=== PATIENT | female | born 1970 | race Caucasian/White ===

== ENCOUNTER → 2022-10-06 13:22 | Outpatient (CLI) | payer MEDICARE, SELFPAY ==
--- NOTE | 2022-10-06 13:24 | XR_ITS ---
FINAL REPORT CLINICAL HISTORY: pain, fall FINDINGS: SINGLE VIEW PELVIS: A single view of the pelvis was obtained. There is no acute fracture or dislocation. There are mild degenerative changes of the hips. Soft tissues are unremarkable. IMPRESSION: Mild degenerative change with no acute bony abnormality. Reviewed, Interpreted and Dictated by Cuauhtemoc Dupree III, MD Transcribed by Brina Oropeza Authenticated and [facility]
== END ==
LOC: RAD 13:22
PROVIDERS: PCP Nurse Practitioner Family; Visit Provider Orthopaedic Surgery
DX: R10.2 Pelvic and perineal pain (principal)
CPT/HCPCS: 72170

== ENCOUNTER → 2022-10-16 11:00 | Outpatient (CLI) | payer MEDICARE, SELFPAY | PROVIDERS: PCP Nurse Practitioner Family; Visit Provider Nurse Practitioner Family | DX: J02.9 Acute pharyngitis, unspecified (principal) | CPT/HCPCS: 87070 ==

== ENCOUNTER → 2023-01-15 16:37 | Outpatient (CLI) | payer MEDICARE, SELFPAY ==
[2023-01-15 16:23] LABS: Basophils # 0.1 K/mm3 (0-0.2); Basophils % 0.5 % (0.1-2.0); Eosinophils # 2.4 K/mm3 (0.0-0.4); Eosinophils % 21.8 % (0.1-12.0); Hematocrit 43.2 % (37.0-47.0); Hemoglobin 14.2 g/dL (12.2-16.2); Lymphocytes # 2.1 K/mm3 (0.7-4.5); Lymphocytes % 18.6 % (10-50); Mean Corpuscular HGB Conc 32.8 g/dL (31.8-35.4); Mean Corpuscular Hemoglobin 29.4 pg (27.0-31.2); Mean Corpuscular Volume 89.5 fl (81-99); Mean Platelet Volume 9.6 fl (7.4-10.4); Monocytes # 0.7 K/mm3 (0.1-1.0); Monocytes % 6.1 % (1.7-9.3); Neutrophils # 5.9 K/mm3 (1.8-7.8); Platelet Count 392 K/mm3 (142-424); Red Blood Count 4.83 M/mm3 (4.20-5.40); Red Cell Distribution Width 14.1 % (11.5-17.5); White Blood Count 11.2 K/mm3 (4.8-10.8)
[2023-01-15 16:27] LABS: Alanine Aminotransferase 26 U/L (12-78); Albumin Level 4.3 g/dl (3.5-5.0); Albumin/Globulin Ratio 1.4 (1.1-1.8); Alkaline Phosphatase 92 U/L (38-126); Anion Gap 16.6 mEq/L (5-15); Aspartate Amino Transferase 31 U/L (14-36); Bilirubin,Total 0.3 mg/dl (0.2-1.3); Blood Urea Nitrogen 23 mg/dl (7-17); Calcium 9.2 mg/dl (8.4-10.2); Carbon Dioxide 25 mmol/L (22.0-30.0); Chloride 103 mmol/L (98-107); Chol/HDL Ratio 5.2 (1-3.5); Cholesterol 235 mg/dl (140-200); Estimated Glomerular Filt Rate 104 ml/min (>60); GFR (African American) 126 ML/MIN (>60); Globulin 3.1 g/dL (1.3-3.2); Glucose 181 mg/dl (74-100); HDL Cholesterol 45 mg/dl (40-60); Potassium 4.6 mmoL/L (3.5-5.1); Sodium 140 mmol/L (136-145); Total Protein,Serum 7.4 g/dl (6.3-8.2); Triglycerides 199 mg/dl (30-150); VLDL Cholesterol 40 mg/dL (0-40)
[2023-01-15 16:38] LABS: Direct LDL Cholesterol 128.32 mg/dL (100-129)
[2023-01-15 16:41] LABS: Hemoglobin A1C 8.1 % (4.0-6.0)
[2023-01-15 16:57] LABS: Thyroid Stimulating Hormone 0.28 uIU/mL (0.465-4.68)
== END ==
PROVIDERS: Visit Provider Nurse Practitioner Family
DX: K52.9 Noninfective gastroenteritis and colitis, unspecified (principal); R00.2 Palpitations; Z79.84 Long term (current) use of oral hypoglycemic drugs; E11.9 Type 2 diabetes mellitus without complications
CPT/HCPCS: 80053; 80061; 83036; 84443; 85025

== ENCOUNTER → 2023-02-23 12:24 | Outpatient (CLI) | payer MEDICARE, SELFPAY | LOC: RT 12:25 | PROVIDERS: PCP Nurse Practitioner Family; Visit Provider Internal Medicine | DX: R00.2 Palpitations (principal) | CPT/HCPCS: 93225 ==

== ENCOUNTER → 2023-03-03 07:47 | Outpatient (CLI) | payer MEDICARE, SELFPAY ==
--- NOTE | 2023-03-03 | CA_ITS ---
APPROVED REPORT Exam: Pharmacologic Technologist: Hortensia Archer Ht: 5 ft 2 in Wt: 129 lbs BSA: 1.59 m2 HR: 69 bpm BP: 128/66 mmHg Rhythm: NSR Indications: Chest pain Medical History Medications: Lisinopril,,,,, Omeprazole,,,,, Pravastatin,,,,, Metformin,,,,, Glimepiride,,,,, LoraTidine,,,,, JaRDiance,,,,, ONdansetron,,,,, TrULicity,,,,, Atenolol-chlorthalidone,,,,, MethIMAZOole,,,,, Stress Test Details Test: LEXISCAN HR Resting HR: 75 bpm Max Heart Rate (APMHR): 165 bpm Max HR Achieved: 100 bpm Target HR (85% APMHR): 140 bpm % of APMHR: 61 Recovery HR: 90 bpm BP Resting BP: 128.0/66.0 mmHg Max BP: 128.0/66.0 mmHg Recovery BP: 114.0/90.0 mmHg ECG Resting ECG: Normal sinus rhythm, NS ST abnormalities inferiorly, Q-waves in inferior leads Stress ECG: No change Arrhythmia: None Recovery ECG: No change Recovery Arrhythmia: None Clinical Exercise duration: 04:00 min Highest Stage Achieved: Stress ECG Conclusion Switched from exercise due to patient concerns about hip issues/pain. Symptoms: Mild shortness of air, stomach and head discomfort. No chest pain. Arrhythmias/Ectopy: None ST-T Changes: No significant ST changes Conclusion: Non-diagnostic Lexiscan stress due to baseline abnormalities. Myoview images reported separately. Test Summary REST . . . . . . . Resting REST 04:00 . . 75 . 128/ 66 . . Stage 1 . . . . . . . Myoview Injected Stage 1 01:00 . . 96 . . . . Stage 2 01:00 . . 99 . 124/ 74 . . Stage 3 01:00 . . 94 . 125/ 74 . . Stage 4 01:00 . . 93 . 122/ 68 . Stop exercise at 04:00 RECOVERY 01:00 . . 91 . . . . RECOVERY 02:00 . . 91 . 128/ 69 . . RECOVERY 03:00 . . 89 . 114/ 72 . . RECOVERY 03:20 . . 90 . 114/ 72 . . Electronically signed by : Arlette Hong, 03/03/2023 20:33:28
--- NOTE | 2023-03-03 07:56 | NM_ITS ---
APPROVED REPORT Exam: Nuclear Stress Test Indication: HTN, DM, HYPERLIPIDEMIA, TOB USE, C.P., SOB, PALPITATIONS, SYNCOPE, FATIGUE Patient Location: Outpatient Stress Tech: Hortensia Archer [place] Tech:Jessica Padilla ELLENLoco RT (R)(N)(M) Ht: 5 ft 2 in Wt: 128 lbs Bra Size: A HR: 75 bpm BP: 128/86 mmHg BSA: 1.58 m2 Rhythm: NSR TID: 1.13 BMI: 23.4 History: HTN, DM, HYPERLIPIDEMIA, TOB USE, C.P., SOB, PALPITATIONS, SYNCOPE, FATIGUE Procedure: Patient received 0.4 mg of intravenous Lexiscan, resting heart rate 75 bpm, resting blood pressure 128/86 mmHg, with Lexiscan maximum heart rate achieved was 99 bpm which is % of the maximum predicted heart rate and blood pressure was 124/74 mmHg. With Lexiscan, patient denied any complaint of chest pain. Cardiac Stress and Resting SPECT Images: Cardiac Stress and Resting SPECT images were obtained using technetium 99m Myoview 31.7 mCi stress and 10.75 mCi at rest. Resting and stress perfusion imaging in both supine and prone positions demonstrate no fixed or reversible perfusion defects. Gated imaging demonstrates normal global and regional LV systolic function. LVEF is calculated at 71%. Conclusion: No fixed or reversible perfusion defects. Gated imaging demonstrates normal global and regional LV systolic function. LVEF is calculated at 71%. Electronically signed by : Arlette Hong, 03/03/2023 20:34:45
--- NOTE | 2023-03-03 09:29 | CA_ITS ---
APPROVED REPORT EXAM: Comprehensive 2D, Doppler, and color-flow Echocardiogram Freight Inspector: KWAKU Cardoso, RVS Ht: 5 ft 2 in Wt: 129lbs BSA: 1.59 HR: 70 bpm BP: 143/72 mmHg Rhythm: NSR Indications: CP, Smoker, Palpitations, SOB, Murmur Echo Enhancing Agent Comments: Poor acoustic windows throughout exam due to lung impedance 2D Dimensions Aortic Root 2.31 cm LA Volume 45.80 mL Left Atrium 2.95 cm LA Volume Index 28.30 mL/m2 (M/F) 16-34 LVOT 1.69 cm (M/F) 1.5-2.5 M-Mode Dimensions RVDd 1.03 cm (0.9-2.6) LA Diam 3.19 cm (1.9-4.0) LVDd 5.05 cm (3.5-5.7) Ao Diam 2.37 cm (2.0-3.7) LVDs 3.30 cm (3.5-5.7) IVSd 0.84 cm (0.6-1.1) PWd 0.90 cm (0.6-1.1) EF (Teich) 63.60% EPSs 0.25 cm FS 34.70% EDV (Teich) 121.00 mL TAPSE 2.08 (<1.7) ESV (Teich) 44.10 mL LV Diastology E Decel Time 277.00 (160-240 msec) E/A Ratio 0.83 MED E' 5.80 (< 7 cm/sec) MED A' 9.70 cm/s E'/MED E' Ratio 17.16 (>14) LAT E' 7.00 (<10 cm/sec) LAT A' 11.30 cm/s E/LAT E' Ratio 14.21 (>14) Aortic Valve LVOT Max 112.00 (70-110 cm/s) LVOT VTI 31.22 cm AoV Peak Yony. 114.00 (50-130 cm/s) AO Peak GR. 5.20 mmHg AO Mean GR. 3.60 (<5 mmHg) AO VTI 28.57 (18-25 cm) YASMIN (VTI) 2.45 (2.5-4.5 cm2) Mitral Valve MV A Velocity 120.00 (40-130 cm/s) E/A Ratio 0.83 MV Decel. Time 277.00 (160-240 ms) MV Mean Gr. 2.40 (<2mmHg) MV PHT 63.00 ms Pulmonary Valve PV Peak Velocity 98.00 (50-150 cm/s) Tricuspid Valve TR P. Velocity 225.00 cm/s RAP Estimate 10.00 mmHg RVSP 30.20 mmHg Left Ventricle The left ventricle is normal size. The left ventricular systolic function is normal. The left ventricular ejection fraction is within the normal range. There is increased LV wall thickness. There is normal LV segmental wall motion. The left ventricular diastolic function is normal. LVEF is 65%. Right Ventricle The RV is not very well visualized due to poor accoustic windows. Grossly, the RV appears normal in size. The right ventricular systolic function is normal. Atria The left atrium size is normal. The right atrium size is normal. Aortic Valve The aortic valve is trileaflet. The aortic valve opens well. There is no aortic valvular stenosis. No aortic regurgitation is present. Mitral Valve There is moderate mitral annular calcification. The mitral valve leaflets are mildly thickened. The motion of the MV leaflets is mildly restricted due to mitral annular calcification. No evidence of mitral valve stenosis. Trace mitral regurgitation. Tricuspid Valve The tricuspid valve leaflets are thin and pliable. Trace tricuspid regurgitation. RVSP = 20 mmHg + RA pressure. Pulmonic Valve The pulmonary valve is normal in structure. Trace pulmonic regurgitation. Great Vessels The aortic root is normal in size. The ascending aorta is normal in size. IVC is normal in size and collapses >50% with inspiration. Pericardium There is no pericardial effusion. Other Information Study Quality: Adequate Conclusion Normal biventricular systolic function. RV size not well visualized, may be underestimated. Moderate mitral annular calcification (MAC). Restricted motion of the MV leaflets. No significant valvular stenosis or regurgitation. Electronically signed by : Arlette Hong, 03/03/2023 18:50:41
--- NOTE | 2023-03-03 09:29 | US_ITS ---
FINAL REPORT CLINICAL HISTORY: cp/abnl ecg/palps, current smoker, HTN, DM, hyperlipidemia, bilateral claudication, bilateral rest pain. FINDINGS: COMPLETE ANKLE/BRACHIAL INDICES BILATERAL Complete ankle brachial indices were obtained. The right FIDELIA is 1.0. The left FIDELIA is 1.1. IMPRESSION: ABIs are within normal limits bilaterally. Reviewed, Interpreted and Dictated by Cuauhtemoc Dupree III, MD Transcribed by Merle Anna Authenticated and [facility]
--- NOTE | 2023-03-03 09:29 | CA_ITS ---
FINAL REPORT TECHNIQUE: Color Doppler, duplex Doppler and goodrich scale sonography of the bilateral neck vasculature was performed. Velocities were measured in the carotid arteries. Stenosis evaluation based on velocity criteria. CLINICAL HISTORY: cp/abnl ecg/palps COMPARISON: None FINDINGS: The peak systolic velocity of the right common carotid artery is 99 cm/sec and internal carotid artery 142 cm/sec. The diastolic velocity in the internal carotid artery is 45 cm/sec. The ICA/CCA ratio is 1.4. Visually, mild to moderate amount of plaque is seen. These findings are consistent with less than 50% stenosis. The external carotid artery is patent. The right vertebral artery is patent with antegrade flow. The peak systolic velocity of the left common carotid artery is 112 cm/sec and internal carotid artery 108 cm/sec. The diastolic velocity in the internal carotid artery is 41 cm/sec. The ICA/CCA ratio is 1.0. Visually, a mild to moderate amount of plaque is seen. These findings are consistent with less than 50% stenosis. The external carotid artery is patent. The left vertebral artery is patent with antegrade flow. IMPRESSION: No evidence of significant carotid stenosis. Bilateral patent vertebral arteries. If indicated, CTA or MRA could further evaluate. Reviewed, Interpreted and Dictated by Cuauhtemoc Dupree III, MD Transcribed by Gabbi Lemon Authenticated and [facility]
== END ==
PROVIDERS: PCP Nurse Practitioner Family; Visit Provider Nurse Practitioner
DX: E05.90 Thyrotoxicosis, unspecified without thyrotoxic crisis or storm (principal); E78.5 Hyperlipidemia, unspecified; R06.00 Dyspnea, unspecified; R07.9 Chest pain, unspecified; R42 Dizziness and giddiness; R94.31 Abnormal electrocardiogram [ECG] [EKG]; I70.213 Atherosclerosis of native arteries of extremities with intermittent claudication, bilateral legs
CPT/HCPCS: 78452; 93017; 93306; 93880; 93923; A9502; J2785

== ENCOUNTER 2023-11-04 16:48 | Outpatient (CLI) | payer MEDICARE, SELFPAY ==
[2023-11-04 16:26] LABS: Basophils # 0.1 K/mm3 (0-0.2); Basophils % 1.1 % (0.1-2.0); Eosinophils # 0.4 K/mm3 (0.0-0.4); Eosinophils % 3.4 % (0.1-12.0); Hematocrit 43.7 % (37.0-47.0); Hemoglobin 13.9 g/dL (12.2-16.2); Lymphocytes # 2.4 K/mm3 (0.7-4.5); Lymphocytes % 22.4 % (10-50); Mean Corpuscular HGB Conc 31.9 g/dL (31.8-35.4); Mean Corpuscular Hemoglobin 29.9 pg (27.0-31.2); Mean Corpuscular Volume 93.9 fl (81-99); Mean Platelet Volume 10.6 fl (7.4-10.4); Monocytes # 0.6 K/mm3 (0.1-1.0); Neutrophils # 7.2 K/mm3 (1.8-7.8); Neutrophils % 67.2 % (37.0-80.0); Platelet Count 387 K/mm3 (142-424); Red Blood Count 4.65 M/mm3 (4.20-5.40); Red Cell Distribution Width 13.6 % (11.5-17.5); White Blood Count 10.7 K/mm3 (4.8-10.8)
[2023-11-04 16:29] LABS: Chloride 104 mmol/L (98-107)
[2023-11-04 16:30] LABS: Potassium 4.3 mmoL/L (3.5-5.1); Sodium 136 mmol/L (136-145)
[2023-11-04 16:32] LABS: Alanine Aminotransferase 24 U/L (12-78); Albumin Level 4.1 g/dl (3.5-5.0); Albumin/Globulin Ratio 1.3 (1.1-1.8); Alkaline Phosphatase 108 U/L (38-126); Anion Gap 11.3 mEq/L (5-15); Aspartate Amino Transferase 30 U/L (14-36); Bilirubin,Total 0.3 mg/dl (0.2-1.3); Blood Urea Nitrogen 32 mg/dl (7-17); Carbon Dioxide 25 mmol/L (22.0-30.0); Estimated Glomerular Filt Rate 87 ml/min (>60); GFR (African American) 105 ML/MIN (>60); Globulin 3.2 g/dL (1.3-3.2); Total Protein,Serum 7.3 g/dl (6.3-8.2)
[2023-11-04 16:33] LABS: Chol/HDL Ratio 6.6 (1-3.5); Cholesterol 283 mg/dl (140-200); Glucose 253 mg/dl (74-100); HDL Cholesterol 43 mg/dl (40-60); Triglycerides 364 mg/dl (30-150); VLDL Cholesterol 73 mg/dL (0-40)
[2023-11-04 16:49] LABS: T4 (Thyroxine) 8.9 ug/dl (5.53-11.0)
[2023-11-04 17:02] LABS: Thyroid Stimulating Hormone 0.14 uIU/mL (0.465-4.68)
[2023-11-04 17:10] LABS: Hemoglobin A1C 12.7 % (4.0-6.0)
== END 2023-11-04 23:59 ==
LOC: LAB.DROPOF 16:49
PROVIDERS: PCP Family Medicine; Visit Provider Family Medicine
DX: E11.9 Type 2 diabetes mellitus without complications (principal); E05.90 Thyrotoxicosis, unspecified without thyrotoxic crisis or storm; E78.5 Hyperlipidemia, unspecified; Z79.84 Long term (current) use of oral hypoglycemic drugs; Z79.85 Long-term (current) use of injectable non-insulin antidiabetic drugs
CPT/HCPCS: 80053; 80061; 83036; 84436; 84443; 85025

== ENCOUNTER 2024-03-21 10:54 | Outpatient (CLI) | payer MEDICARE, SELFPAY ==
[2024-03-21 16:50] LABS: Basophils # 0.1 K/mm3 (0-0.2); Basophils % 0.9 % (0.1-2.0); Eosinophils # 0.3 K/mm3 (0.0-0.4); Eosinophils % 2.7 % (0.1-12.0); Hematocrit 43.9 % (37.0-47.0); Lymphocytes # 2.1 K/mm3 (0.7-4.5); Lymphocytes % 19.2 % (10-50); Mean Corpuscular HGB Conc 31.9 g/dL (31.8-35.4); Mean Corpuscular Hemoglobin 29.2 pg (27.0-31.2); Mean Corpuscular Volume 91.7 fl (81-99); Mean Platelet Volume 9.7 fl (7.4-10.4); Monocytes # 0.7 K/mm3 (0.1-1.0); Monocytes % 6.6 % (1.7-9.3); Neutrophils # 7.7 K/mm3 (1.8-7.8); Neutrophils % 70.6 % (37.0-80.0); Platelet Count 348 K/mm3 (142-424); Red Blood Count 4.79 M/mm3 (4.20-5.40); Red Cell Distribution Width 15.4 % (11.5-17.5); White Blood Count 10.9 K/mm3 (4.8-10.8)
[2024-03-21 17:14] LABS: Microalbumin/Creatinine Ratio 20.9
[2024-03-21 17:16] LABS: Alanine Aminotransferase 24 U/L (12-78); Albumin Level 4.3 g/dl (3.5-5.0); Albumin/Globulin Ratio 1.2 (1.1-1.8); Alkaline Phosphatase 85 U/L (38-126); Anion Gap 13.6 mEq/L (5-15); Aspartate Amino Transferase 34 U/L (14-36); Bilirubin,Total 0.6 mg/dl (0.2-1.3); Blood Urea Nitrogen 17 mg/dl (7-17); Calcium 9.4 mg/dl (8.4-10.2); Carbon Dioxide 25 mmol/L (22.0-30.0); Chloride 104 mmol/L (98-107); Chol/HDL Ratio 5.9 (1-3.5); Cholesterol 277 mg/dl (140-200); Estimated Glomerular Filt Rate 103 ml/min (>60); GFR (African American) 125 ML/MIN (>60); Globulin 3.6 g/dL (1.3-3.2); Glucose 224 mg/dl (74-100); HDL Cholesterol 47 mg/dl (40-60); Potassium 4.6 mmoL/L (3.5-5.1); Sodium 138 mmol/L (136-145); Total Protein,Serum 7.9 g/dl (6.3-8.2); Triglycerides 344 mg/dl (30-150); VLDL Cholesterol 69 mg/dL (0-40)
[2024-03-21 17:21] LABS: Creatinine,Urine Random 33 mg/dL (Not Estab.)
[2024-03-21 17:27] LABS: Direct LDL Cholesterol 152.31 mg/dL (100-129)
[2024-03-21 17:32] LABS: T4 (Thyroxine) 9.3 ug/dl (5.53-11.0)
[2024-03-21 17:46] LABS: Thyroid Stimulating Hormone 0.21 uIU/mL (0.465-4.68)
[2024-03-21 19:41] LABS: Hemoglobin A1C 9.4 % (4.0-6.0)
== END 2024-03-21 23:59 | disposition home or self-care (01) ==
LOC: LAB.DROPOF 03-22 10:54
PROVIDERS: PCP Family Medicine; Visit Provider Family Medicine
DX: E05.90 Thyrotoxicosis, unspecified without thyrotoxic crisis or storm (principal); E78.5 Hyperlipidemia, unspecified; R30.0 Dysuria; E11.9 Type 2 diabetes mellitus without complications; Z79.84 Long term (current) use of oral hypoglycemic drugs; Z79.85 Long-term (current) use of injectable non-insulin antidiabetic drugs
CPT/HCPCS: 80050; 80053; 80061; 82043; 82570; 83036; 84436; 84443; 85025; 87086

== ENCOUNTER 2024-05-04 09:58 | Outpatient (CLI) | payer MEDICARE, SELFPAY ==
--- NOTE | 2024-05-04 09:59 | CT_ITS ---
FINAL REPORT TECHNIQUE: Thin section axial images were obtained from the lung apices to the upper abdomen by computed tomography. Reformatted images were obtained and reviewed. This study was performed with techniques to keep radiation doses al low as reasonably achievable (ALARA). Individualized dose reduction techniques using automated exposure control or adjustment of mA and/or kV according to the patient's size were employed. CLINICAL HISTORY: lung cancer screening smoker 1 ppd x 30 years COMPARISON: None FINDINGS: CHEST CT LOW DOSE 54-year-old female, current smoker, [id number] history. CTDI vol (mGy): 2.9 DLP (mGy-cm): 103.68 There is no axillary adenopathy. There is no mediastinal or hilar mass or adenopathy. The heart is normal in size. There is no pericardial or pleural effusion. Lung window images demonstrate 2 noncalcified nodules in the right lower lobe. The more superior nodule measures 7 mm in size, best seen on image #40 of series 4. There is a round focus somewhat more inferior, also measuring 7 mm in size, best seen on image #48 of series 4.. Limited images of the upper abdomen are unremarkable. IMPRESSION: Lung-RADS category 3. Recommend 6 month follow up low dose chest CT. Reviewed, Interpreted and Dictated by Jagjit Lindsey MD Transcribed by Gabbi Lemon Authenticated and [facility]
== END 2024-05-04 23:59 | disposition home or self-care (01) ==
PROVIDERS: PCP Family Medicine; Visit Provider Family Medicine
DX: F17.210 Nicotine dependence, cigarettes, uncomplicated (principal)
CPT/HCPCS: 71271

== ENCOUNTER 2024-05-11 07:57 | Outpatient (CLI) | payer MEDICARE, SELFPAY ==
--- NOTE | 2024-05-11 07:57 | MM_ITS ---
PROCEDURE INFORMATION: Exam: MG Bilateral Screening 3D Mammography Exam date and time: 05/11/2024 7:54 AM Age: 54 years old Clinical indication: Screening mammogram TECHNIQUE: Imaging protocol: Bilateral Screening tomosynthesis and 2D mammography including computer-aided detection (CAD) when performed. COMPARISON: 1. MG DMSB DIG MAMM-SCREEN CHENG 08/18/2013 10:37 AM 2. MG DIAG MAMMO BI-LAT W/ CAD 03/06/2009 11:31 AM 3. BL US BREAST-LT 09/21/2013 3:05 PM FINDINGS: MAMMOGRAPHY: Breast composition: There are scattered areas of fibroglandular density. Mass: None. Architectural distortion: No new or suspicious architectural distortion. Calcifications: No new or suspicious calcifications are present Asymmetric density: No new or suspicious asymmetric density is present Skin thickening: None. Axillary adenopathy: None. IMPRESSION: No mammographic evidence of malignancy. Recommend annual screening mammography unless otherwise clinically indicated. ASSESSMENT: BI-RADS category 1: Negative.
--- NOTE | 2024-05-11 07:57 | XR_ITS ---
FINAL REPORT TECHNIQUE: Bone mineral density was calculated of the lumbar spine and hip. CLINICAL HISTORY: postmenopausal COMPARISON: None FINDINGS: Using L1-4, the bone mineral density of the spine is 1.066 g/cm2, corresponding to T-score of 0.2. Using the left hip, the bone mineral density of the femoral neck is 0.862 g/cm2, corresponding to a T-score of 0.1. NOTE: T-score: Standard deviation compared with peak bone mass of young adult mean. *Following the recommendations of the International Society of Bone densitometry, classification of hip BMD is based on the lower of two T-scores; total hip or femoral neck. IMPRESSION: Normal bone mineral density of the lumbar spine and left hip. Reviewed, Interpreted and Dictated by Cuauhtemoc Dupree III, MD Transcribed by Gabbi Lemon Authenticated and . [facility]
== END 2024-05-11 23:59 | disposition home or self-care (01) ==
LOC: RAD 07:57
PROVIDERS: PCP Family Medicine; Visit Provider Family Medicine
DX: Z78.0 Asymptomatic menopausal state (principal); Z12.31 Encounter for screening mammogram for malignant neoplasm of breast
CPT/HCPCS: 77063; 77067; 77080

== ENCOUNTER 2024-06-09 11:19 | Outpatient (CLI) | payer MEDICARE, SELFPAY ==
--- NOTE | 2024-06-09 11:20 | US_ITS ---
FINAL REPORT CLINICAL HISTORY: 6 MONTH F/U COMPARISON: No priors available for comparison. FINDINGS: Sonographic images of the thyroid gland were obtained. The right thyroid lobe measures 44 mm. in length. The left thyroid lobe measures 53 mm. in length. The thyroid isthmus measures 2 mm. The echogenicity is normal. Bilateral thyroid nodules are identified, largest on the right is mostly solid and isoechoic measuring 16 x 10 x 13 mm consistent with TR 3. Largest nodule on the left is solid and isoechoic with macrocalcification measuring 31 x 25 x 21 mm consistent with TR 4. IMPRESSION: Bilateral thyroid nodules. Recommend ultrasound-guided biopsy of the dominant nodule on the left if not already performed. Authenticated and [facility]
== END 2024-06-09 23:59 | disposition home or self-care (01) ==
LOC: RAD 11:20
PROVIDERS: PCP Family Medicine; Visit Provider Family Medicine
DX: Z86.39 Personal history of other endocrine, nutritional and metabolic disease (principal)
CPT/HCPCS: 76536

== ENCOUNTER 2024-06-13 08:53 | Outpatient (CLI) | payer MEDICARE, MEDICAID, SELFPAY ==
--- NOTE | 2024-06-13 08:58 | US_ITS ---
FINAL REPORT CLINICAL HISTORY: thyroid nodule -- LEFT THYROID FNA -- AMADOR ROUSSEAU FINDINGS: ULTRASOUND GUIDED THYROID BIOPSY HISTORY: Left thyroid nodule/mass. TECHNIQUE: Limited sonographic evaluation of thyroid gland was performed to localize lesion of interest. The neck was prepped in a routine sterile fashion and locally anesthetized with 1% lidocaine. FNA was performed with 25-gauge needle under direct sonographic visualization. 6 passes were made. Cytology is pending. Procedure was well tolerated. CONCLUSION: 1. Technically successful left thyroid fine needle aspiration. Reviewed, Interpreted and Dictated by Cuauhtemoc Dupree III, MD Transcribed by Isabell Cazares PA-C Authenticated and [facility]
== END 2024-06-13 23:59 | disposition home or self-care (01) ==
LOC: RAD 08:54
PROVIDERS: PCP Family Medicine; Visit Provider Family Medicine
DX: E04.1 Nontoxic single thyroid nodule (principal); E05.90 Thyrotoxicosis, unspecified without thyrotoxic crisis or storm
CPT/HCPCS: 76536; 76942; 88173

== ENCOUNTER 2024-12-04 13:54 | Emergency (ER) | payer MEDICARE, MEDICAID, SELFPAY ==
[2024-12-04] VITALS (7 sets, daily range): BP systolic 102–150; BP diastolic 64–79; PULSE 62–82; RESP 15–20; TEMP 36.7–37; O2SAT 98–99; BMI 25.6
--- NOTE | 2024-12-04 14:11 | XR_ITS ---
PROCEDURE INFORMATION: Exam: XR Left Elbow Exam date and time: 12/04/2024 2:19 PM Age: 54 years old Clinical indication: Injury or trauma; Fall; Other: Pain; Additional info: Lateral pain after fall TECHNIQUE: Imaging protocol: Radiologic exam of the left elbow. Views: 3 or more views. COMPARISON: CR XR ELBOW LT MIN 3V 12/04/2024 2:19 PM FINDINGS: Bones/joints: There is a lucency in the radial head seen better on the forearm films. It extends into the articular surface and is consistent with nondisplaced radial head fracture.. Soft tissues: Soft tissue swelling of the elbow IMPRESSION: There is a lucency in the radial head seen better on the forearm films. It extends into the articular surface and is consistent with nondisplaced radial head fracture..
--- NOTE | 2024-12-04 14:11 | XR_ITS ---
PROCEDURE INFORMATION: Exam: XR Left Shoulder Exam date and time: 12/04/2024 2:19 PM Age: 54 years old Clinical indication: Injury or trauma; Fall; Other: Pain; Additional info: Anterior/ clavicle pain after fall TECHNIQUE: Imaging protocol: Radiologic exam of the left shoulder. Views: 2 or more views. COMPARISON: CT LUNG SCREENING 05/04/2024 10:12 AM FINDINGS: Bones/joints: Mild Degenerative changes in the acromioclavicular joint and glenohumeral joint. There is no evidence of acute fracture.There is no evidence of malalignment or dislocation. Soft tissues: Normal. IMPRESSION: There is no evidence of acute fracture.There is no evidence of malalignment or dislocation.
--- NOTE | 2024-12-04 14:11 | XR_ITS ---
PROCEDURE INFORMATION: Exam: XR Left Wrist Exam date and time: 12/04/2024 2:19 PM Age: 54 years old Clinical indication: Injury or trauma; Fall; Other: Pain TECHNIQUE: Imaging protocol: Radiologic exam of the left wrist. Views: 3 or more views. COMPARISON: CR XR FOREARM LT 2V 12/04/2024 2:19 PM FINDINGS: Bones/joints: There is no evidence of acute fracture.There is no evidence of malalignment or dislocation. Mild degenerative changes in the radiocarpal joint Soft tissues: Normal. IMPRESSION: There is no evidence of acute fracture.There is no evidence of malalignment or dislocation.
--- NOTE | 2024-12-04 14:11 | XR_ITS ---
PROCEDURE INFORMATION: Exam: XR Left Forearm Exam date and time: 12/04/2024 2:19 PM Age: 54 years old Clinical indication: Injury or trauma; Fall; Other: Pain; Additional info: Abrasion, pain after fall TECHNIQUE: Imaging protocol: Radiologic exam of the left forearm. Views: 2 views. COMPARISON: CR XR HAND LT MIN 3V 12/04/2024 2:19 PM FINDINGS: Bones/joints: Lucency in the articular surface of the radial head consistent with nondisplaced radial head fracture.. No fracture of the radial or ulnar shaft Soft tissues: Soft tissue swelling of the elbow IMPRESSION: Lucency in the articular surface of the radial head consistent with nondisplaced radial head fracture..
--- NOTE | 2024-12-04 14:11 | XR_ITS ---
PROCEDURE INFORMATION: Exam: XR Right Knee Exam date and time: 12/04/2024 2:19 PM Age: 54 years old Clinical indication: Injury or trauma; Fall; Other: Pain; Additional info: Anterior abrasion TECHNIQUE: Imaging protocol: Radiologic exam of the right knee. Views: 3 views. COMPARISON: US ARTERIAL LOWER EXT REST 03/03/2023 10:51 AM FINDINGS: Bones/joints: There is no evidence of acute fracture.There is no evidence of malalignment or dislocation. Soft tissues: Normal. IMPRESSION: There is no evidence of acute fracture.There is no evidence of malalignment or dislocation.
--- NOTE | 2024-12-04 14:11 | XR_ITS ---
PROCEDURE INFORMATION: Exam: XR Left Hand Exam date and time: 12/04/2024 2:19 PM Age: 54 years old Clinical indication: Injury or trauma; Fall; Other: Pain; Additional info: Lateral pain after fall TECHNIQUE: Imaging protocol: Radiologic exam of the left hand. Views: 3 or more views. COMPARISON: CR XR HAND LT MIN 3V 12/04/2024 2:19 PM FINDINGS: Bones/joints: There is no evidence of acute fracture.There is no evidence of malalignment or dislocation. Degenerative changes in the radiocarpal joint Soft tissues: Normal. IMPRESSION: There is no evidence of acute fracture.There is no evidence of malalignment or dislocation.
--- NOTE | 2024-12-04 14:13 | ED_ITS ---
<Statement entered by Andrey Kasper DO - 12/06/24 14:38> I was consulted by the JENNIFER, and we discussed the complexity of the problem being addressed. I approve the treatment and management plan for this patient's care in the emergency department, thus performing a substantive portion of the medical decision making. Seen by JENNIFER only. Andrey Kasper DO Discharge Plan Disposition Patient Disposition: Home, Self-Care Condition: Good Prescriptions Prescriptions: New hydrocodone-acetaminophen 5-325 mg tablet 1 tab PO Q6H PRN (Reason: pain) 3 Days Qty: 12 0RF No Action hydroxyzine HCl 50 mg tablet 50 mg PO TID PRN (Reason: anxiety) Qty: 90 1RF ondansetron 4 mg tablet,disintegrating 4 mg PO Q8H PRN (Reason: nausea and vomiting) Qty: 30 1RF metformin 500 mg tablet extended release 24 hr 500 mg PO DAILY Qty: 30 2RF meloxicam 15 mg tablet 15 mg PO DAILY Qty: 30 2RF tizanidine [Zanaflex] 4 mg tablet 4 mg PO BID PRN (Reason: muscle spasticity) Qty: 30 2RF omeprazole 20 mg capsule,delayed release(DR/EC) 20 mg PO DAILY Qty: 90 1RF atenolol-chlorthalidone 50-25 mg tablet 0.5 tab PO DAILY 30 Days Qty: 15 2RF methimazole 10 mg tablet 10 mg PO DAILY Qty: 30 2RF (DME) blood-glucose meter [True Metrix Air Glucose Meter] Kit See Rx Instructions .Route Qty: 1 0RF Rx Instructions: As directed (DME) True Metrix Glucose Test Strip Strip See Rx Instructions .Route Qty: 100 1RF Rx Instructions: As directed (DME) lancets [TRUEplus Lancets] 33 gauge misc See Rx Instructions .Route Qty: 100 1RF Rx Instructions: As directed alcohol swabs Pads, Medicated 1 pad topical .COMPLEX 30 Days Qty: 100 3RF Rx Instructions: 1 pad topically to check blood sugar (DME) True Metrix Level 1 Solution See Rx Instructions .Route Qty: 1 0RF Rx Instructions: As directed docusate sodium [Colace] 100 mg capsule 100 mg PO BID Qty: 60 5RF pravastatin 40 mg tablet 40 mg PO DAILY 90 Days Qty: 90 1RF trazodone 50 mg tablet 50 mg PO HS Qty: 30 3RF insulin glargine [Lantus Solostar U-100 Insulin] 100 unit/mL (3 mL) insulin pen 30 unit SQ DAILY Qty: 3 2RF (DME) FreeStyle Flavia 2 Sensor Kit See Rx Instructions .ROUTE .COMPLEX Qty: 2 2RF Dose Instruction: USE DIRECTED TO MEASURE BLOOD SUGAR. APPLY NEW SENSOR EVERY 14 DAYS. Rx Instructions: USE DIRECTED TO MEASURE BLOOD SUGAR. APPLY NEW SENSOR EVERY 14 DAYS. (DME) Dexcom G6 Extension Associate Misc See Rx Instructions .Route Qty: 1 0RF Rx Instructions: As directed (DME) Dexcom G6 Sensor Device See Rx Instructions .Route Qty: 3 6RF Rx Instructions: As directed lisinopril 10 mg tablet See Rx Instructions .ROUTE .COMPLEX Qty: 90 0RF Dose Instruction: TAKE 1 TABLET 1 TIME EACH DAY Rx Instructions: TAKE 1 TABLET 1 TIME EACH DAY (DME) pen needle, diabetic [Comfort EZ Pen [place]] 32 gauge x 3/16 needle See Rx Instructions .ROUTE .COMPLEX Qty: 100 3RF Dose Instruction: USE TO INJECT INSULIN 1 TIME EACH DAY Rx Instructions: USE TO INJECT INSULIN 1 TIME EACH DAY (DME) Dexcom G6 Transmitter Device See Rx Instructions .Route Qty: 1 1RF Rx Instructions: As directed Referrals Follow up/Referrals: Sha Barriga DO [Staff Physician] - See instructions Jai Kenyon MD [Primary Care Provider] - See instructions Activity Restrictions/Add. Instructions Additional Instructions/Restrictions: You were seen for a radial head fracture. You need to follow up with the orthopedist. Return to the ER if you have severe swelling, pain, unable to move your hand. Clinical Impressions Clinical Impression: Closed fracture of radial head Instructions Patient Instructions: DI for Forearm Fracture Print Language Print Language: Persian Discharge ED Provider: Andrey Kasper General Adult HPI General Chief complaint: Extremity Injury, Upper Stated complaint: [id number], pain/swelling in L arm, cant move Time Seen by Provider: 12/04/24 13:59 Mode of Arrival: Ambulatory Source of Information: Patient Description of Symptoms (Recalled from ER Triage Doc. by RN): pt was walking and tripped over her blower outside and landed on all fours but majority of force caught on left arm, where majority of her pain is at. PMS intact History of Present Illness HPI narrative: Patient presents after a fall. She reports that she was doing some yard work and tripped over a leaf blower. She reports that she fell onto her bilateral knees and arms. Denies any known head injury or headache. She has abrasions to her right knee and left upper extremity. She has decreased range of motion to her left upper extremity as well. She has not taken any Tylenol or ibuprofen. She has applied a wrap to her left wrist. Denies any fevers or vomiting MD complaint: left arm pain Onset (ago): hour(s) Location: left and upper extremity Radiation: non-radiation Severity: moderate Consistency: constant Relieving factors: none Exacerbating factors: movement Associated symptoms: negative fever/chills Related Data Previous Rx's ?Medication ?Instructions ?Recorded blood sugar diagnostic (True #100 ea 10/01/22 Metrix Glucose Test Strip) blood-glucose meter (True Metrix #1 ea 10/01/22 Air Glucose Meter kit) lancets 33 gauge (TRUEplus Lancets) #100 ea 10/01/22 alcohol swabs 1 pad topical .COMPLEX diabtes 30 10/03/22 days #100 ea blood glucose control, low (True #1 ea 10/03/22 Metrix Level 1 solution) omeprazole 20 mg capsule,delayed 20 mg PO DAILY #90 caps 01/15/23 release hydroxyzine HCl 50 mg tablet 50 mg PO TID PRN anxiety #90 tabs 03/13/23 ondansetron 4 mg disintegrating 4 mg PO Q8H PRN nausea and 03/13/23 tablet vomiting #30 tabs docusate sodium 100 mg capsule 100 mg PO BID #60 caps 11/05/23 (Colace) pravastatin 40 mg tablet 40 mg PO DAILY Cholesterol 90 days 03/02/24 #90 tabs trazodone 50 mg tablet 50 mg PO HS sleep #30 tabs 07/06/24 insulin glargine 100 unit/mL (3 30 unit (0.3 mL) SQ DAILY #3 mL 08/15/24 mL) subcutaneous pen (Lantus Solostar U-100 Insulin) flash glucose sensor (FreeStyle #2 kits 09/12/24 Flavia 2 Sensor kit) blood-glucose sensor (Dexcom G6 #3 ea 09/13/24 Sensor device) blood-glucose,platform loader,cont #1 ea 09/13/24 (Dexcom G6 Extension Associate) lisinopril 10 mg tablet See Rx Instructions .Route 10/17/24 .COMPLEX #90 tabs pen needle, diabetic 32 gauge x #100 ea 10/17/2410/16 (Comfort EZ Pen [place]) atenolol 50 mg-chlorthalidone 25 0.5 tab PO DAILY 30 days #15 tabs 11/09/24 mg tablet methimazole 10 mg tablet 10 mg PO DAILY #30 tabs 11/09/24 meloxicam 15 mg tablet 15 mg PO DAILY #30 tabs 11/30/24 metformin 500 mg tablet,extended 500 mg PO DAILY Diabetes #30 tabs 11/30/24 release 24 hr tizanidine 4 mg tablet (Zanaflex) 4 mg PO BID PRN muscle spasticity 11/30/24 #30 tabs blood-glucose transmitter (Dexcom #1 ea 12/02/24 G6 Transmitter device) hydrocodone 5 mg-acetaminophen 325 1 tab PO Q6H PRN pain 3 days #12 12/04/24 mg tablet tabs Allergies Allergy/AdvReac Type Severity Reaction Status Date / Time acetaminophen (From Percocet) AdvReac Vomiting Verified 11/30/24 09:25 hydromorphone (From Dilaudid) AdvReac Vomiting Verified 11/30/24 09:25 oxycodone (From Percocet) AdvReac Vomiting Verified 11/30/24 09:25 PFSH PFSH Disclaimer: The information contained in this section may have been updated after the patient was seen, as this information can be updated by other users. Medical History (Updated 12/04/24 @ 16:48 by SOHAM Pak) Peripheral vascular disease, unspecified Insomnia, unspecified Claudication Dizziness Abnormal electrocardiogram [ECG] [EKG] Dyspnea Chest pain Hypertension Hyperthyroidism Crohn's colitis Manic depression Carpal tunnel syndrome PTSD (post-traumatic stress disorder) Bipolar 1 disorder Hyperglycemia due to type 1 diabetes mellitus Surgical History History of colonoscopy H/O breast biopsy History of hysterectomy History of Family History Father Cancer Mother Hypertension Thyroid disorder Social History Smoking Status: Current every day smoker tobacco type: cigarettes packs per day: 1 alcohol intake: never substance use type: marijuana current occupational status: disabled Travel in the last 8 weeks?: None household members: none housing: house Have you lived/traveled outside [place] in past 30 days?: No Contact w/someone who lives/traveled outside [place] past 30 days?: No Exposure to someone with infectious disease in past 14 days?: No Do you have a fever (greater than 100.4 F or 38 C)?: No Have you tested positive for COVID-19?: No Exposed to someone with COVID-19 in past 14 days?: No Do you have a sore throat?: No Do you have a cough?: No Do you have any weakness?: No Do you have any diarrhea?: No Are you experiencing any unusual bleeding?: No Do you have any muscle aches/pain?: No Do you have any abdominal pain?: No Are you experiencing loss of taste or smell?: No Other Medical History Have you received the Flu Vaccine for this season: No Have you received the Pneumonia Vaccine: No ROS Obtained: Yes Systems reviewed as appropriate & no additional complaints except as documented Physical Exam General General appearance: alert and in no apparent distress Head Head exam: atraumatic and normocephalic Eye Eye exam: Present normal appearance and EOMI Chest Chest inspection: Present symmetric chest wall rise Respiratory Respiratory exam: Present normal lung sounds bilaterally; Absent wheezes or stridor Cardiovascular Cardiovascular exam: Present regular rate and normal rhythm; Absent systolic murmur Extremities Exam Extremities exam: Present other (Right knee anterior, inferior tenderness with abrasion. Left anterior shoulder mild tenderness, left lateral elbow TTP, abrasion to lateral/ posterior mid forearm, unable to extend left elbow, can flex to 70 degrees. No scaphoid tenderness, Positive thenar eminence tenderness/swelling. N/V intact. ) Neurological Exam Neurological exam: Present alert and oriented X3 Psychiatric Psychiatric exam: Present normal affect and normal mood Skin Skin exam: Present warm, dry and intact Medical Decision Making Medical Records Screening: Per USPSTF and CDC recommendations, given the prevalence of disease in our region, it is our hospital?s policy to screen for HIV and viral Hepatitis for all patients aged 18 and over and those with ongoing risk factors. John Inquiry Pt receiving controlled substance: Yes John was queried for this patient: Yes Risks and benefits of using a controlled substance: were discussed with pt by me Vital Signs: 12/04/24 14:01 12/04/24 14:05 12/04/24 15:00 Temperature 98.6 F Temperature Source Oral Pulse Rate 69 63 Pulse Rate [Left Radial] 82 Respiratory Rate 20 Blood Pressure 102/74 L 132/72 Blood Pressure [Right Arm] 102/74 L Blood Pressure Mean Blood Pressure Mean [Right Arm] 83 02 Sat by Pulse Oximetry 99 98 99 Oxygen Delivery Method Room Air Room Air Room Air 12/04/24 15:30 12/04/24 16:01 12/04/24 16:30 Temperature Temperature Source Pulse Rate 71 67 62 Pulse Rate [Left Radial] Respiratory Rate 15 Blood Pressure 130/64 126/65 119/67 Blood Pressure [Right Arm] Blood Pressure Mean 80 Blood Pressure Mean [Right Arm] 02 Sat by Pulse Oximetry 98 99 98 Oxygen Delivery Method Room Air Room Air Room Air 12/04/24 17:03 Temperature 98.0 F Temperature Source Pulse Rate 73 Pulse Rate [Left Radial] Respiratory Rate 20 Blood Pressure 150/79 H Blood Pressure [Right Arm] Blood Pressure Mean Blood Pressure Mean [Right Arm] 02 Sat by Pulse Oximetry Oxygen Delivery Method Room Air Orders (Tests/Meds): ED MEDICATIONS Discontinued Medications Generic Name Dose Route Start Last Admin Trade Name Freq PRN Reason Stop Dose Admin Hydrocodone Bitart/Acetaminophen 1 tab 12/04/24 15:52 12/04/24 16:01 Hydrocodone/Apap 5/325 Mg Tablet PO 12/04/24 15:53 1 tab ONCE ONE Administration Ondansetron HCl 4 mg 12/04/24 15:52 12/04/24 16:02 Ondansetron 4mg Odt SL 12/04/24 15:53 4 mg ONCE ONE Administration Tetanus/Reduced Diphtheria/Acell Pertussis 0.5 ml 12/04/24 14:11 12/04/24 14:34 Tet/Diphth/Pert-Adult 0.5ml Syringe IM 12/04/24 14:12 0.5 ml .ONCE ONE Administration ORDERS Category Date Time Status Elbow XR left mininum 3 views [XR elbow LT min 3V] Stat Exams 12/04/24 14:11 Completed Forearm XR left 2 views [XR forearm LT 2V] Stat Exams 12/04/24 14:11 Completed Hand XR left minimum 3 views [XR hand LT min 3V] Stat Exams 12/04/24 14:11 Com pleted Knee XR right 3 views [XR knee RT 3V] Stat Exams 12/04/24 14:11 Completed Shoulder XR left minimum 2 views [XR shoulder LT min 2V Exams 12/04/24 14:11 Completed ] Stat Wrist XR left minimum 3 views [XR wrist LT min 3V] Stat Exams 12/04/24 14:11 Completed Medical Decision Narrative: In summary patient is a 54-year-old female who presents the emergency department for evaluation of right knee pain and left forearm pain. Patient is hemodynamically stable upon arrival, afebrile. Abrasion to forearm, no limited range of motion of elbow, abrasion and contusion to right knee. Differential diagnosis includes contusion, abrasion, fracture, sprain. Initial workup will be conducted with plain films. Initial workup reviewed by me reveal possible radial head fracture. She is N/V intact. Upon repeat evaluation patient had improvement of pain with Gary. Given this patient is appropriate for discharge home with a sling and follow-up with orthopedics. Critical Care Critical Care Time Critical Care Time: No
[2024-12-04] MEDS: TET/DIPHTH/PERT-ADULT 0.5ML SYRINGE 0.5 ML IM (14:34)
--- NOTE | 2024-12-04 14:40 | PC.NURSE ---
pt is back from xrays at this time
[2024-12-04] MEDS: HYDROCODONE/APAP 5/325 MG TABLET 1 TAB PO (16:01)
[2024-12-04] MEDS: ONDANSETRON 4MG ODT 4 MG SL (16:02)
--- NOTE | 2024-12-04 16:35 | PC.NURSE ---
Dr Wiley at bedside
== END 2024-12-04 17:04 | disposition home or self-care (01) ==
PROVIDERS: Emergency Provider Student in an Organized Health Care Education/Training Program; PCP Family Medicine
DX: S52.125A Nondisplaced fracture of head of left radius, initial encounter for closed fracture (principal); M79.602 Pain in left arm; S80.211A Abrasion, right knee, initial encounter; W01.10XA Fall on same level from slipping, tripping and stumbling with subsequent striking against unspecified object, initial encounter; Z23 Encounter for immunization
CPT/HCPCS: 73030; 73080; 73090; 73110; 73130; 73562; 90471; 90715; 99284; Q0162

== ENCOUNTER 2024-12-13 13:51 | Outpatient (CLI) | payer MEDICARE, MEDICAID, SELFPAY ==
--- NOTE | 2024-12-13 13:54 | XR_ITS ---
FINAL REPORT CLINICAL HISTORY: left elbow fx//fell 2 days ago COMPARISON: 12/04/2024 FINDINGS: LEFT ELBOW 3 views of the elbow were obtained. There is a subtle, nondisplaced fracture of the radial head. The joint spaces are intact. Previously seen joint effusion has decreased. There is not soft tissue abnormality. IMPRESSION: Subtle, nondisplaced fracture of the radial head with improving joint effusion. Reviewed, Interpreted and Dictated by Jagjit Lindsey MD Transcribed by Jill Roman Authenticated and [facility]
== END 2024-12-13 23:59 | disposition home or self-care (01) ==
LOC: RAD 13:52
PROVIDERS: PCP Family Medicine; Visit Provider Physician Assistant
DX: S52.125A Nondisplaced fracture of head of left radius, initial encounter for closed fracture (principal); M25.422 Effusion, left elbow
CPT/HCPCS: 73080

== ENCOUNTER 2024-12-16 10:20 | Outpatient (CLI) | payer MEDICARE, MEDICAID, SELFPAY ==
--- NOTE | 2024-12-16 10:15 | CT_ITS ---
FINAL REPORT TECHNIQUE: Thin section axial images were obtained from the lung apices through the upper abdomen without contrast. This study was performed with techniques to keep radiation doses as low as reasonably achievable (ALARA). Individualized dose reduction techniques using automated exposure control or adjustment of mA and/or kV according to the patient's size were employed. CLINICAL HISTORY: 6 month follow-up COMPARISON: 05/04/2024 FINDINGS: There is no mediastinal, hilar, or axillary lymphadenopathy. There is a calcified left thyroid nodule, which is unchanged from the prior exam. No pleural or pericardial effusion. There is evidence of prior granulomatous disease. There is a stable subpleural right lower lobe noncalcified nodule measuring 5 mm on image 46 of series 2. There is a 7 mm nodule on image 38, which is also unchanged. The lungs are otherwise clear. There is no consolidation. Limited, unenhanced evaluation of the upper abdomen is without acute abnormality. There is no acute osseous abnormality. IMPRESSION: Stable right lower lobe pulmonary nodules. Recommend follow-up exam in 12 to 18 months. Reviewed, Interpreted and Dictated by Samantha cMcall MD Transcribed by Nely Medina Authenticated and . [facility]
== END 2024-12-16 23:59 | disposition home or self-care (01) ==
LOC: RAD 10:21
PROVIDERS: PCP Family Medicine; Visit Provider Family Medicine
DX: R91.8 Other nonspecific abnormal finding of lung field (principal)
CPT/HCPCS: 71250

== ENCOUNTER 2024-12-20 09:28 | Outpatient (CLI) | payer MEDICARE, MEDICAID, SELFPAY ==
--- NOTE | 2024-12-20 09:32 | XR_ITS ---
FINAL REPORT CLINICAL HISTORY: Left Elbow sprain COMPARISON: 12/13/2024 FINDINGS: LEFT ELBOW Three views were obtained. There is a linear nondisplaced fracture of the radial head which is less apparent than prior exam. Joint effusion is identified. IMPRESSION: Improvement in the nondisplaced radial head fracture. Reviewed, Interpreted and Dictated by Narinder Ghosh MD Transcribed by Merle Anna Authenticated and [facility]
== END 2024-12-20 23:59 | disposition home or self-care (01) ==
LOC: RAD 09:30
PROVIDERS: PCP Family Medicine; Visit Provider Physician Assistant
DX: S52.122A Displaced fracture of head of left radius, initial encounter for closed fracture (principal); S53.402A Unspecified sprain of left elbow, initial encounter; S63.502A Unspecified sprain of left wrist, initial encounter
CPT/HCPCS: 73080

== ENCOUNTER 2025-05-04 09:00 | Outpatient (CLI) | payer MEDICARE, MEDICAID, SELFPAY ==
[2025-05-04 20:30] LABS: Hematocrit 39.2 % (37.0-47.0); Hemoglobin 12.5 g/dL (12.2-16.2); Immature Granulocytes % 0.4 %; Mean Corpuscular HGB Conc 31.9 g/dL (31.8-35.4); Mean Corpuscular Hemoglobin 29.8 pg (27.0-31.2); Mean Corpuscular Volume 93.6 fl (81-99); Nucleated Red Blood Cells % 0 %; Platelet Count 342 K/mm3 (142-424); Red Blood Count 4.19 M/mm3 (4.20-5.40); Red Cell Distribution Width-SD 49.2 fL; White Blood Count 14.0 K/mm3 (4.8-10.8)
[2025-05-04 20:57] LABS: Alanine Aminotransferase 22 U/L (12-78); Albumin Level 4.3 g/dl (3.5-5.0); Albumin/Globulin Ratio 1.6 (1.1-1.8); Alkaline Phosphatase 83 U/L (38-126); Anion Gap 17.8 mEq/L (5-15); Aspartate Amino Transferase 24 U/L (14-36); Bilirubin,Total 0.7 mg/dl (0.2-1.3); Blood Urea Nitrogen 25 mg/dl (7-17); Calcium 9.6 mg/dl (8.4-10.2); Carbon Dioxide 23 mmol/L (22.0-30.0); Chloride 104 mmol/L (98-107); Cholesterol 172 mg/dl (140-200); Creatinine,Serum 0.90 mg/dl (0.52-1.04); Estimated Glomerular Filt Rate 65 ml/min (>60); GFR (African American) 78 ML/MIN (>60); Globulin 2.7 g/dL (1.3-3.2); Glucose 54 mg/dl (74-100); HDL Cholesterol 49 mg/dl (40-60); Potassium 4.8 mmoL/L (3.5-5.1); Sodium 140 mmol/L (136-145); Total Protein,Serum 7.0 g/dl (6.3-8.2); Triglycerides 144 mg/dl (30-150)
[2025-05-04 21:28] LABS: Thyroid Stimulating Hormone 2.31 uIU/mL (0.465-4.68)
--- OUTSIDE RECORDS SUMMARY | 2025-05-05 10:34 | XMS_ITS | Encounter Summary ---
Author Organization [facility] Address [address] [place] [address] Care Team Providers Care Commercial Insulator Name Role Phone Queenie De Leon APRN Primary Care Provider Reason for Visit * Reason Comments Med Refill Encounter Details Date Type Department Care Team (Late st Contact Info) Description 02/[facility] [address] [place] [address] Calvin Moran, DO [address] [address] Social History Tobacco Use Types Packs/Day Years Used Date Smoking Tobacco: Every Day Smokeless Tobacco: Never Comments Unknown Sex and Gender Information Value Date Recorded Sex Assigned at Not on file Legal Sex Female 8:22 PM EDT Gender Identity Not on file Sexual Orientation Not on file COVID-19 Exposure Response Date Recorded In the last month, have you been in contact with someone who was confirmed or suspected to have Coronavirus / COVID-19? No / Unsure 02/06/2021 9:17 AM EDT documented as of this encounter Plan of Treatment Not on file documented as of this encounter Visit Diagnoses Not on filedocumented in this encounter Additional Health Concerns Assessment Noted Time A fall risk assessment has been complete d for the patient 02/06/2021 9:26 AM EDT documented as of this encounter Care Teams Commercial Insulator Relationship Specialty Start Date End Date Queenie De Leon, DRYWALL SANDER [address] [place] [address] PCP - General 02/06/21 documented as of this encounter
--- OUTSIDE RECORDS SUMMARY | 2025-05-05 10:34 | XMS_ITS | Clinical Summary ---
Author Organization [employer] ([place], [place], [place], [place]) Address [address] [place] [address] Care Team Providers Care Telegraph Office Manager Name Role Phone Unavailable Primary Care Provider Unavailabl e Social History Tobacco Use Types Packs/Day Years Used Date Smoking Tobacco: Never Assessed Comments Unknown Sex and Gender Information Value Date Recorded Sex Assigned at Not on file Legal Sex Female 5:31 PM CDT Gender Identity Not on file Sexual Orientation Not on file Plan of Treatment Not on file
--- OUTSIDE RECORDS SUMMARY | 2025-05-05 10:34 | XMS_ITS | Referral Summary ---
Author Organization [employer] ([place], [place], [place], [place]) Address [address] [place] [address] Care Team Providers Care Link Trainer Maintenance Man Name Role Phone Unavailable Primary Care Provider [...]
--- OUTSIDE RECORDS SUMMARY | 2025-05-05 10:34 | XMS_ITS | Clinical Summary ---
Author Organization [facility] Address [address] [place] [address] Care Team Providers Care Surveying Teacher Name Role Phone De Leon, Queenie Flaco CAMARENA Primary Care Provider + [phone] Allergies No known active allergies Medications albuterol (ProAir HFA) 108 (90 Base) MCG/ACT inhaler ProAir HFA 90 mcg/actuation aerosol inhaler Active atenolol-chlort halidone (Tenoretic) 50-25 MG tablet atenolol 50 mg-chlorthalidon e 25 mg tablet TAKE 1/2 TABLET 1 TIME EACH DAY Active famotidine (Pepcid) 20 MG tablet famotidine 20 mg tablet TAKE 1 TABLET 2 TIMES EACH DAY Active glimepiride (Amaryl) 2 MG tablet glimepiride 2 mg tablet TAKE 1 TABLET 1 TIME EACH DAY IN THE MORNING Active insulin glargine (Lantus SoloStar) 100 UNIT/ML injection Lantus Solostar U-100 Insulin 100 unit/mL (3 mL) subcutaneous pen INJECT 15 UNITS UNDER THE SKIN 1 TIME EACH DAY AT BEDTIME Active ketorolac (Toradol) 10 MG tablet ketorolac 10 mg tablet TAKE 1 TABLET 3 TIMES EACH DAY NEEDED FOR MODERATE OR SEVERE PAIN Active lisinopril 10 MG tablet lisinopril 10 mg tablet TAKE 1 TABLET 1 TIME EACH DAY Active ondansetron (Zofran) 4 MG tablet ondansetron HCl 4 mg tablet TAKE 1 TABLET 3 TIMES EACH DAY NEEDED FOR NAUSEA AND VOMITING Active promethazine (Phenergan) 25 MG tablet promethazine 25 mg tablet TAKE 1 TABLET 3 TIMES EACH DAY NEEDED FOR NAUSEA AND VOMITING Active pravastatin (Pravachol) 20 MG tablet pravastatin 20 mg tablet TAKE 1 TABLET 1 TIME EACH DAY AT BEDTIME Active SITagliptin-met FORMIN HCl ER (Janumet XR) 50-1000 MG tablet sustained-relea se 24 hour Janumet XR 50 mg-1,000 mg tablet,extended release TAKE 2 TABLETS 1 TIME EACH DAY WITH THE EVENING MEAL. SWALLOW WHOLE. DO NOT CRUSH, CHEW OR CUT. Active traMADol (Ultram) 50 MG tablet Take by mouth. Activ e methIMAzole (Tapazole) 5 MG tablet TAKE 1 TABLET 1 TIME EACH DAY 30 tablet 4 Active Active Problems Problem Noted Date Diagnosed Date Hyperthyroidism 10/19/2020 Immunizations Immunization Administration Dates Next Due Hep B, adult 08/18/2007,02/24/2007 IPV 08/12/1973 MMR 02/26/2007 PPD Skin Test (TB Skin Test) 02/24/2007,02/16/20 07 Td (adult), unspecified 10/06/2006 Family History Medical History Relation Name Comments Cancer Father Cancer Mother Hypertension Mother Thyroid disease Mother Diabetes type II Paternal Grandfather Diabetes type II Paternal Grandmother Lupus Sister Thyroid disease Sister Relation Name Status Comments Father Mother Paternal Grandfather Paternal Grandmother Sister Social History Tobacco Use Types Packs/Day Years Used Date Smoking Tobacco: Every Day Smokeless Tobacco: Never Comments Unknown Sex and Gender Information Value Date Recorded Sex Assigned at Not on file Legal Sex Female 8:22 PM EDT Gender Identity Not on file Sexual Orientation Not on file Last Filed Vital Signs Vital Sign Reading Time Taken Comments Blood Pressure 121/78 02/06/2021 9:26 AM EDT Pulse 80 02/06/2021 9:26 AM EDT Temperature - - Respiratory Rate - - Oxygen Saturation - - Inhaled Oxygen Concentration - - Weight 61.1 kg (134 lb 11.2 oz) 02/06/2021 9:26 AM EDT Height 157.5 cm (5' 2 ) 02/06/2021 9:26 AM EDT Body Mass Index 24.64 02/06/2021 9:26 AM EDT Plan of Treatment Health Maintenance Due Date Last Done Comments [facility]-Depression Screening 1970 [facility]-Infant/Child/Adol SDOH Screenings 1970 [facility]-IPV Vaccines (2 of 3 - 4-dose series) 09/09/1973 08/12/1973 [facility]- SDOH Screenings 02/18/1986 [facility]-Adult SDOH Screenings 02/18/1986 [facility]-DTaP,Tdap,and Td Vaccine s (1 - Tdap) 10/07/2006 10/06/2006, 10/06/2006 CT Colonography 02/18/2013 Colonoscopy 02/18/2013 FIT-DNA 02/18/2013 FIT 02/18/2013 FOBT 02/18/2013 Sigmoidoscopy 02/18/2013 [facility]-Colorectal Cancer Screening 02/18/2013 [facility]-Pneumococcal Vaccine: 50 + Years (1 of 1 - PCV) 02/18/2018 [facility]-Zoster Vaccines (1 of 2) 02/18/2018 [id number] Vaccine (1 - season) 2025 [facility]-Influenza Vaccine (#1) 2025 06/26/2020 [facility]-Hepatitis B Vaccines Completed 008, 02/24/2007, 10/06/2006 [facility]-Cervical Cancer Screening Discontinued [facility]-HPV/Cotest Discontinued 05/23/2008 [facility]-Pap Smear Discontinued 05/23/2008 HPV Vaccines Aged Out No longer eligi ble based on patient's age to complete this topic [facility]-HIB Vaccines Aged Out No longer e ligible based on patient's age to complete this topic [facility]-Hepatitis A Vaccines Aged Out No longer eligible based on patient's age to complete this topic [facility]-Rotavirus Vaccines Aged Out No lo nger eligible based on patient's age to complete this topic Procedures Procedure Name Priority Date/Time Associated Diagnosis Comments CYTO DATA CONVERSION Routine 05/23/2008 12:00 AM EDT from Last 3 Months or Most Recently Relevant to Health Maintenance Results * Cytology (05/23/2008 12:00 AM EDT) 05/23/2008 05/24/2008 10: 05 AM EDT Narrative SUNQUEST - 05/29/2008 9:22 AM EDT [facility] MR #: [id number] [facility] [place] [id number] (Age: 38) FW Collect Date: 05/23/2008 00:00 Receipt Date: 05/24/2008 10:05 Page 1 DEPARTMENT OF PATHOLOGY AND LABORATORY MEDICINE CYTOPATHOLOGY REPORT Email: [email or web address] [phone] ATTENDING MD/Practitioner: Rafiq Bueno DO Service: [facility] Location: [facility] Reported: 05/29/2008 09:22 Collected: 05/23/2008 00:00 INTERPRETATION A. THIN PREP (CERVICAL/VAGINAL): NEGATIVE FOR INTRAEPITHELIAL LESION OR MALIGNANCY. SATISFACTORY FOR EVALUATION; ENDOCERVICAL/ TRANSFORMATION ZONE COMPONENT PRESENT. Slide scanned and imaged by [employer]in[employer] Imaging System with manual review of all selected melvin. Electronically Signed Out By JEREMY Krishnan (ASCP) JEREMY Kuo(ASCP) JEREMY Krishnan (ASCP) Cervical cytology is a screening test primarily for squamous cancers and precursors and has associated false negative and positive results. New technologies such as liquid based sampling may decrease but will not eliminate all false negative results. Regular screening and follow-up of unexplained clinical signs and symptoms are recommended to minimize false negative results. Please see the ASCCP website (www.asccp.org) for followup recommendations. If HPV testing was requested, correlation with the results is suggested (please call Microbiology at [phone] for results). CLINICAL INFORMATION: Menstrual History: Cyclic Date of Last Menstrual Period: {Not Provided} SPECIMEN DESCRIPTION: A: THIN PREP (CERVICAL/VAGINAL) THIN PREP PROCESS CELLULAR ENHANCEMENT ICD: V76.2 CERVIX, SPECIAL SCREENING FOR MALIGNANT NEOPLASM F: A; RT IMAGE [id number] SNOMED CODES: A; [id number] In cases where a pathologist has signed out the report, the service has been rendered in part by a resident. The signing pathologist has performed and is responsible for the reported pathologic evaluation. us Historical Provider LAB PATHOLOGY ORDERABLES Fin al Result SUNQUEST from Last 3 Months or Most Recently Relevant to Health Maintenance Insurance MEDICARE Care Teams Surveying Teacher Relationship Specialty Start Date End Date Queenie De Leon APRN [address] [place] [address] PCP - General 02/06/21
== END 2025-05-04 23:59 ==
LOC: LAB.DROPOF 05-05 10:32
PROVIDERS: PCP Nurse Practitioner Family; Visit Provider Nurse Practitioner Family
DX: E11.9 Type 2 diabetes mellitus without complications (principal); Z86.39 Personal history of other endocrine, nutritional and metabolic disease
CPT/HCPCS: 80053; 80061; 82043; 82570; 84443; 85025

== ENCOUNTER 2025-05-23 08:06 | Outpatient (CLI) | payer MEDICARE, MEDICAID, SELFPAY ==
--- OUTSIDE RECORDS SUMMARY | 2025-04-03 07:47 | XMS_ITS | Continuity of Care Document ---
Author Organization [facility] Phone Care Team Providers Care Granite Fabricator Name Role Phone SEE BOLAÑOS Primary Care [phone] DUARTE NICKERSON Admitting DUARTE NICKERSON Unavailable DUARTE NICKERSON Primary Attending ALLERGIES AND ADVERSE REACTIONS ALLERGIES AND ADVERSE REACTIONS Code System Allergy Substance Adverse Reaction Date Reaction (Severity) Comment Status Reported By Updated By [id number] RXNorm DILAUDID Adverse reaction to substance nausea active [id number] on May 19, 2023 8:48:07 PM [facility] FAMILY HISTORY RELATION: Father Status: Cause of : Unknown Age at : Unknown SNOMED-CT Diagnosis Age At Onset [id number] Malignant neoplasm of bone RELATION: Mother Status: LIVING SNOMED-CT Diagnosis Age At Onset [id number] Disorder of thyroid gland RESULTS Patient: EVANGELIST Sam Date of : 1970 LABORATORY RESULTS ORDER 300: CBC AUTO W DIFF ( LOINC: 27573-6) ORDER DATE: March 30, 2025 7:17:00 PM [facility] Specimen Source: Whole Blood Specimen Type: Whole blood s ample PERFORMING LAB: [address] [id number] Result Comment: Final Result Date: March 30, 2025 7:31:00 PM UT (TECH: MRB) LOINC TEST FLAG RESULT REFERENCE RANGE UPDA MINO BY 6690-2 Leukocytes [#/volume] in Blood by Automated count H 13.2 10^3/uL 4.5 10^3/uL - 11.5 10^3/uL March 30, 2025 7:31:00 PM UTC (TECH: MRB) 789-8 Erythrocytes [#/volume] in Blood by Automated count N 4.43 10^6/uL 4.25 10^6/uL - 5.57 10^6/uL March 30, 2025 7:31:00 PM UTC (TECH: MRB) 718-7 Hemoglobin [Mass/volume] in Blood N 13.1 g/dL 12.0 g/dL - 15.7 g/dL March 30, 2025 7:31:00 PM UTC (TECH: MRB) 94183-3 Hematocrit [Volume Fraction] of Blood N 39.5 % 36.0 % - 47.0 % March 30, 2025 7:31:00 PM UTC (TECH: MRB) 787-2 Erythrocyte mean corpuscular volume [Entitic volume] by Automated count N 89.2 fl 80 fl - 95 fl March 30, 2025 7:31:00 PM UTC (TECH: MRB) 46559-2 Erythrocyte mean corpuscular hemoglobin [Entitic mass] in Blood from Fetus by Automated count N 29.6 pg 27.0 pg - 34.0 pg March 30, 2025 7:31:00 PM UTC (TECH: MRB) 94649-8 Erythrocyte mean corpuscular hemoglobin concentration [Mass/volume] in Blood from Fetus by Automated count N 33.2 g/dL 32.0 g/dL - 36.0 g/dL March 30, 2025 7:31:00 PM UTC (TECH: MRB) 72207-4 Platelets [#/volume] in Blood N 328 10^3/uL 150 10^3/uL - 450 10^3/uL March 30, 2025 7:31:00 PM UTC (TECH: MRB) 61341-2 Erythrocyte distribution width [Ratio] N 14.1 % 12.3 % - 15.1 % March 30, 2025 7:31:00 PM UTC (TECH: MRB) 67071-9 Platelet mean volume [Entitic volume] in Blood by Automated count N 10.2 fl 7.4 fl - 10.4 fl March 30, 2025 7:31:00 PM UTC (TECH: MRB) 78746-4 Granulocytes/100 leukocytes in Blood by Automated count N 68.2 % 40 % - 75 % March 30, 2025 7:31:00 PM UTC (TECH: MRB) 736-9 Lymphocytes/100 leukocytes in Blood by Automated count N 21.4 % 15 % - 57 % March 30, 2025 7:31:00 PM UTC (TECH: MRB) 5905-5 Monocytes/100 leukocytes in Blood by Automated count N 6.2 % 4.0 % - 12.0 % March 30, 2025 7:31:00 PM UTC (TECH: MRB) 713-8 Eosinophils/100 leukocytes in Blood by Automated count N 3.6 % 0.0 % - 4.0 % March 30, 2025 7:31:00 PM UTC (TECH: MRB) 706-2 Basophils/100 leukocytes in Blood by Automated count N 0.3 % 0.0 % - 1.0 % March 30, 2025 7:31:00 PM UTC (TECH: MRB) 77790-8 Immature granulocytes [#/volume] in Blood N 0.3 % 0.0 % - 0.8 % March 30, 2025 7:31:00 PM UTC (TECH: MRB) 86702-4 Granulocytes [#/volume] in Blood by Automated count N 8.99 10^3/uL March 30, 2025 7:31:00 PM UTC (TECH: MRB) 731-0 Lymphocytes [#/volume] in Blood by Automated count N 2.81 10^3/uL March 30, 2025 7:31:00 PM UTC (TECH: MRB) 742-7 Monocytes [#/volume] in Blood by Automated count N 0.81 10^3/uL March 30, 2025 7:31:00 PM UTC (TECH: MRB) 711-2 Eosinophils [#/volume] in Blood by Automated count N 0.47 10^3/uL March 30, 2025 7:31:00 PM UTC (TECH: MRB) 704-7 Basophils [#/volume] in Blood by Automated count N 0.04 10^3/uL March 30, 2025 7:31:00 PM UTC (TECH: MRB) 94127-1 Immature granulocytes [#/volume] in Blood N 0.04 10^3/uL March 30, 2025 7:31:00 PM UTC (TECH: MRB) 25552-2 Manual differential performed [Presence] in Blood N NO March 30, 2025 7:31:00 PM UT (TECH: MRB) ORDER 400: COMP METABOLIC PA SITA (LOINC: 65187-2) ORDER DATE: March 30, 2025 7:17:00 PM UTC Specimen Source: Serum/Plasm a Specimen Type: Acellular blo od (serum or plasma) specimen PERFORMING LAB: [address] [id number] Result Comment: Final Result Date: March 30, 2025 7:47:00 PM UT (TECH: LT) LOINC TEST FLAG RESULT REFERENCE RANGE UPDA MINO BY 2951-2 Sodium [Moles/volume ] in Serum or Plasma N 138 mmol/L 136 mmol/L - 145 mmol/L March 30, 2025 7:47:00 PM UTC (TECH: LT) 2823-3 Potassium [Moles/volume] in Serum or Plasma N 4.0 mmol/L 3.5 mmol/L - 5.1 mmol/L March 30, 2025 7:47:00 PM UTC (TECH: LT) 2075-0 Chloride [Moles/volu me] in Serum or Plasma N 103 mmol/L 98 mmol/L - 107 mmol/L March 30, 2025 7:47:00 PM UTC (TECH: LT) 8-9 Carbon dioxide, tota l [Moles/volume] in Serum or Plasma N 28 mmol/L 21 mmol/L - 32 mmol/L March 30, 2025 7:47:00 PM UTC (TECH: LT) 04996-7 Anion gap 3 in Serum or Plasma N 7.0 March 30, 2025 7:47:00 PM UTC (TECH: LT) 2345-7 Glucose [Mass/volume ] in Serum or Plasma H 131 mg/dL 70 mg/dL - 110 mg/dL March 30, 2025 7:47:00 PM UTC (TECH: LT) 3094-0 Urea nitrogen [Mass/volume] in Serum or Plasma H 40 mg/dL 7 mg/dL - 18 mg/dL March 30, 2025 7:47:00 PM UTC (TECH: LT) 2160-0 Creatinine [Mass/volume] in Serum or Plasma H 1.2 mg/dL 0.6 mg/dL - 1.0 mg/dL March 30, 2025 7:47:00 PM UT (TECH: LT) 3097-3 Urea nitrogen/Creatinine [Mass Ratio] in Serum or Plasma H 33.3 9 - 21 March 30, 2025 7:47:00 PM UT (TECH: LT) 21732-3 Glomerular filtratio n rate/1.73 sq M.predicted by Creatinine-based formula (MDRD) L 53 mL/min >60 March 30, 2025 7:47:00 PM UT (TECH: LT) 48135-3 Osmolality of Serum or Plasma by calculated by sum of electrolytes N 299 mosm/kg 275 mosm/kg - 301 mosm/kg March 30, 2025 7:47:00 PM UT (TECH: LT) 2885-2 Protein [Mass/volume ] in Serum or Plasma H 8.8 g/dL 6.4 g/dL - 8.2 g/dL March 30, 2025 7:47:00 PM [facility] (TECH: LT) 1751-7 Albumin [Mass/volume ] in Serum or Plasma N 4.0 g/dL 3.4 g/dL - 5.0 g/dL March 30, 2025 7:47:00 PM UT (TECH: LT) 58222-5 Calcium [Mass/volume ] in Serum or Plasma N 9.2 mg/dL 8.5 mg/dL - 10.1 mg/dL March 30, 2025 7:47:00 PM [facility] (TECH: LT) 93148-1 Calcium [Mass/volume ] corrected for total protein in Serum or Plasma N 9.2 mg/dL 8.5 mg/dL - 10.1 mg/dL March 30, 2025 7:47:00 PM UT (TECH: LT) 1975-2 Bilirubin.total [Mass/volume] in Serum or Plasma N 0.4 mg/dL 0.4 mg/dL - 1.5 mg/dL March 30, 2025 7:47:00 PM UT (TECH: LT) 1920-8 Aspartate aminotransferase [Enzymatic activity/volume] in Serum or Plasma N 17 U/L 15 U/L - 37 U/L March 30, 2025 7:47:00 PM UT (TECH: LT) 1742-6 Alanine aminotransferase [Enzymatic activity/volume] in Serum or Plasma N 23 U/L 12 U/L - 78 U/L March 30, 2025 7:47:00 PM UTC (TECH: LT) 6768-6 Alkaline phosphatase [Enzymatic activity/volume] in Serum or Plasma N 78 U/L 50 U/L - 120 U/L March 30, 2025 7:47:00 PM UTC (TECH: LT) ORDER 500: URINE DRUG SCREEN - EXL MAX (LOINC: 61065-4) ORDER DATE: March 30, 2025 7:17:00 PM UTC Specimen Source: URINE Specimen Type: Urine specime n PERFORMING LAB: [address] [id number] Result Comment: Final Result Date: March 30, 2025 7:47:00 PM UTC (TECH: MRB) LOINC TEST [place] [address]-8 Amphetamine+Methamph etamine [Presence] in Urine N NEGATIVE NEGATIVE March 30 7:47:00 PM UTC (TECH: MRB) 3377-9 Barbiturates [Presen ce] in Urine N NEGATIVE NEGATIVE March 30, 2025 7:47:00 PM UTC (TECH: MRB) 04572-9 Benzodiazepine metab olites [Presence] in Urine by Screen method N NEGATIVE NEGATIVE March 30, 2025 7:47:00 PM UTC (TECH: MRB) 3414-0 Buprenorphine [Prese nce] in Urine N NEGATIVE NEGATIVE March 30, 2025 7:47:00 PM UTC (TECH: MRB) 3397-7 Cocaine [Presence] in Urine N NEGATIVE NE GATIVE March 30, 2025 7:47:00 PM UTC (TECH: MRB) 74153-0 Methadone [Presence] in Specimen N NEGATIVE NEGATIVE March 30, 2025 7:47:00 PM UTC (TECH: MRB) 91086-6 Opiates [Mass/volume ] in Specimen N NEGATIVE NEGATIVE March 30, 2025 7:47:00 PM UTC (TECH: MRB) 84181-9 oxyCODONE [Presence] in Specimen N NEGATIVE NEGATIVE March 30, 2025 7:47:00 PM UTC (TECH: MRB) 3427-2 Cannabinoids [Presen ce] in Urine POSITIVE NEGATIVE March 30, 2025 7:47:00 PM UTC (TECH: MRB) 25958-1 Phencyclidine [Prese nce] in Specimen N NEGATIVE NEGATIVE March 30, 2025 7:47:00 PM UTC (TECH: MRB) 38289-2 Fentanyl [Presence] in Urine N NEGATIVE N EGATIVE March 30, 2025 7:47:00 PM UTC (TECH: MRB) 30812-3 Tricyclic antidepres sants [Presence] in Specimen N NEGATIVE NEGATIVE March 7:47:00 PM UTC (TECH: MRB) 95736-3 Internal control result N PASS PASS March 30, 2025 7:47:00 PM UTC (TECH: MRB) LABORATORY NARRATIVE RESULTS Information is not available RADIOLOGY RESULTS ORDER 100: CHEST PA AND LAT (LOINC: 69534-9) ORDER DATE: March 30, 2025 7:06:00 PM UTC PERFORMING LAB: [address] [id number] Final Result Date: March 7:13:23 PM UTC [address] [place] [address] Name: ALLAN BLANCA Exam Date: 03/30/2025 : 1970 Age 55 years Gender: F Physician: DUARTE NICKERSON Facility: [facility] Facility HSV: Outpatient Exam: CHEST PA & LAT XR CHEST 2 VIEWS Reason For Study: pre op COMPARISON:05/11/2021 TECHNIQUE: PA and lateral views of the chest were obtained. FINDINGS PA and lateral views of the chest demonstrate clear lungs. The heart size is normal. The bony thorax is intact. 3 mm lung nodule medial right lung base likely a granuloma unchanged. IMPRESSION: No active disease in the chest. COPD. Electronically signed by: Sav Cherry MD 03/30/2025 04:46 PM EDT Dictated By: SAV CHERRY Transcribed By: Transcribed On: 03/30/2025 3:13 PM Electronically signed by: SAV CHERRY 03/30/2025 Thank you for referring ALLAN BLANCA to [facility]. Legally authenticated by ANTONIO ANG MD 2025-03-30 15:13:23 PATHOLOGY NARRATIVE RESULTS Information is not available MICROBIOLOGY RESULTS No Micro Labs/Results Exist for Patient BLOOD ADMIN RESULTS Information is not available MEDICATIONS HOME MEDICATIONS Status RXNORM NDC Medication Dose Route Frequency Dates Comments Reported By Updated By Drug Treatment Unknown DISCHARGE MEDICATIONS Status RXNORM NDC Medication Dose Route Frequency Dates Dis pense Data Comments Physician Updated By No Discharge Medication Info rmation Available INPATIENT MEDICATIONS Status RXNORM NDC Medication Dose Route Frequency Rat e Quantity Dates Indication Dispense Data Comments Physician Updated By No Inpatient Medication Info rmation Available SOCIAL HISTORY SOCIAL HISTORY - Smoking Status SNOMED-CT Social History Element Description Effective Dates Offered Cessation Comment Updated By [id number] Historical Tobacco smoking status Current Every Day Smoker Yes [id number] on April 16, 2020 7:22:50 PM [facility] SOCIAL HISTORY - Gender Sex: Female SOCIAL HISTORY - Status : status i nformation is not available Intention in Next Year: intention information is not available SOCIAL HISTORY - Assessments Code System Description Status Date Value of Assessment Updated By Comment Assessment Information is no t available SOCIAL HISTORY - Pechanga Affiliation Pechanga information is not av ailable SOCIAL HISTORY - Legal Sex Legal Sex information is not available SOCIAL HISTORY - Sexual Behavior Sexual Orientation Gender Identity SNOMED-CT Description SNO MED -CT Description Activity Level No of Partners Partner Type UpdatedBy Information is not available SOCIAL HISTORY - Occupation Occupation information is no t available HEALTH CONCERNS Problems Concern Status Health Concern problem infor mation not available. Smoking Status Status Years Used Consumed packs p er day Health Concern smoking histo ry information not available. Family History Concern Status Health Concern family histor y information not available. ENCOUNTERS ENCOUNTER INFORMATION Reason for Visit PRE OP CLEARANCE Admission March 30, 2025 6:58:[address] [address] Discharge March 31, 2025 12:58:00 AM [facility] DISCHARGED TO HOME OR SELF CARE ENCOUNTER DIAGNOSES Notes information is not josé miguel ilable. Code System Diagnosis Onset Date Diagnosis information is not available. ABSTRACT DIAGNOSES Code System Diagnosis Updated By Abatement Date Z01.818 ICD10 ENCOUNTER FOR OT HER PREPROCEDURAL EXAMINATION [id number] on April 03, 2025 11:46:33 AM [facility] G56.02 ICD10 CARPAL TUNNEL SY NDROME, LEFT UPPER LIMB [id number] on April 03, 2025 11:46:33 AM [facility] M65.332 ICD10 TRIGGER FINGER, LEFT MIDDLE FINGER [id number] on April 03, 2025 11:46:33 AM UTC Z01.818 ICD10 ENCOUNTER FOR OT HER PREPROCEDURAL EXAMINATION [id number] on April 03, 2025 11:46:33 AM UTC J44.9 ICD10 CHRONIC OBSTRUCT FATUMA PULMONARY DISEASE, UNSPECIFIED [id number] on April 03, 2025 11:46:33 AM UTC G56.02 ICD10 CARPAL TUNNEL SY NDROME, LEFT UPPER LIMB [id number] on April 03, 2025 11:46:33 AM UTC M65.332 ICD10 TRIGGER FINGER, LEFT MIDDLE FINGER [id number] on April 03, 2025 11:46:33 AM UTC CARE TEAM Care Granite Fabricator Role SEE BOLAÑOS Primary Care DUARTE NICKERSON Admitting DUARTE NICKERSON Referring DUARTE NICKERSON Primary Attending CARE TEAM CARE audio installer Role on Team Location Telecom Status Start Date End Aj e Updated By MAMI CUI MD PCP normal March 30, 2025 6:58:47 PM UTC March 31, 2025 12:58:00 AM UTC [id number] on March 30, 2025 6:58:47 PM UTC LIYA RAMACHANDRAN MD Referring normal March 30, 2025 6:58:46 PM UTC March 31, 2025 12:58:00 AM UTC [id number] on March 30, 2025 6:58:47 PM UT LIYA RAMACHANDRAN MD Attending normal March 30, 2025 6:58:46 PM UTC March 31, 2025 12:58:00 AM UTC [id number] on March 30, 2025 6:58:47 PM UT LIYA RAMACHANDRAN MD Admitting normal March 30, 2025 6:58:46 PM UTC March 31, 2025 12:58:00 AM UTC [id number] on March 30, 2025 6:58:47 PM UTC
--- NOTE | 2025-05-23 08:00 | MM_ITS ---
PROCEDURE INFORMATION: Exam: MG Bilateral Screening 3D Mammography Exam date and time: 05/23/2025 8:20 AM Age: 55 years old Clinical indication: Screening examination. TECHNIQUE: Imaging protocol: Bilateral Screening tomosynthesis and 2D mammography including computer-aided detection (CAD) when performed. COMPARISON: 1. MG MM DIG SCREENING MAMM BI W/CAD 05/11/2024 7:54 AM 2. MG DMSB DIG MAMM-SCREEN CHENG 08/18/2013 10:37 AM FINDINGS: MAMMOGRAPHY: Breast composition: There are scattered areas of fibroglandular density. Mass: None. Architectural distortion: None. Calcifications: No suspicious calcifications. Asymmetric density: None. Skin thickening: None. Axillary adenopathy: None. IMPRESSION: No mammographic evidence of malignancy. Annual screening is recommended unless otherwise clinically indicated. ASSESSMENT: BI-RADS Category 1: Negative.
--- OUTSIDE RECORDS SUMMARY | 2025-05-23 08:09 | XMS_ITS | Clinical Summary ---
Author Organization [facility] Address [address] [place] [address] Care Team Providers Care Scientific Specialist Name Role Phone De Leon, Queenie Flaco CAMARENA Primary Care Provider + [phone] Allergies No known active allergies Medications albuterol [...] 02/18/2018 UKY-Zoster Vaccines (1 of 2) 02/18/2018 FFR-GGNOD-00 Vaccine (1 - season) 2025 UKY-Influenza Vaccine [...] - 05/29/2008 9:22 AM EDT [facility] MR #: [id number] [facility] [place] [id number] (Age: 38) FW Collect Date: 05/23/2008 00:00 Receipt Date: 05/24/2008 10:05 Page 1 DEPARTMENT OF PATHOLOGY AND LABORATORY MEDICINE CYTOPATHOLOGY REPORT Email: [email or web address] [phone] ATTENDING MD/Practitioner: Rafiq Bueno DO Service: [facility] Location: [facility] Reported: 05/29/2008 09:22 Collected: 05/23/2008 00:00 INTERPRETATION A. THIN PREP (CERVICAL/VAGINAL): NEGATIVE FOR INTRAEPITHELIAL LESION OR MALIGNANCY. SATISFACTORY FOR EVALUATION; ENDOCERVICAL/ TRANSFORMATION ZONE COMPONENT PRESENT. Slide scanned and imaged by [employer] ThinPrep Imaging System with manual review of [...] results is suggested (please call Microbiology at [phone] for results). CLINICAL INFORMATION: Menstrual History: Cyclic Date of Last Menstrual Period: {Not Provided} SPECIMEN DESCRIPTION: A: THIN PREP (CERVICAL/VAGINAL) THIN PREP PROCESS CELLULAR ENHANCEMENT ICD: V76.2 CERVIX, SPECIAL SCREENING FOR MALIGNANT NEOPLASM F: A; RT IMAGE [id number] SNOMED CODES: A; [id number] In cases where a pathologist has signed out the report, the service has been rendered in part by a resident. The signing pathologist has performed and is responsible for the reported pathologic evaluation. us Historical Provider LAB PATHOLOGY ORDERABLES Fin al Result SUNQUEST from Last 3 Months or Most Recently Relevant to Health Maintenance Insurance MEDICARE Care Teams Scientific Specialist Relationship Specialty Start Date End Date Queenie De Leon APRN [address] [place] [address] PCP - General 02/06/21
--- OUTSIDE RECORDS SUMMARY | 2025-05-23 08:09 | XMS_ITS | Clinical Summary ---
Author Organization [employer] ([place], [place], [place], [place]) Address [address] [place] [id number] Care Team Providers Care Manager Oracle Name Role Phone Unavailable Primary Care Provider [...]
--- OUTSIDE RECORDS SUMMARY | 2025-05-23 08:09 | XMS_ITS | Encounter Summary ---
Author Organization [facility] Address [address] [place] [address] Care Team Providers Care Construction Worker Name Role Phone Queenie De Leon APRN Primary Care Provider Reason for Visit * Reason Comments Med Refill Encounter Details Date Type Department Care Team (Late st Contact Info) Description [facility]20[facility] [address] [place] [address] Calvin Moran, DO [address] [address] Social History Tobacco Use Types [...] documented as of this encounter Care Teams Construction Worker Relationship Specialty Start Date End Date Queenie De Leon, [employer]IVER [address] [place] [address] PCP - General 02/06/21 documented as of this encounter
--- OUTSIDE RECORDS SUMMARY | 2025-05-23 08:09 | XMS_ITS | Data Portability ---
Author Organization [facility] Address [address] [place] [address] Assessment Encounter Date Assessment Date Assessment LastModified by Organization Details LastModified Time 12/01/2019 12/01/2019 Mrs. 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 I think that if any of her hip pain is coming from the segment she would respond to an epidural steroid injection. I also think that interventional pain management might have something offer with regards to her coccydynia. The fracture appears well-healed on her MRI, that may be some slight inflammation on the STIR imaging. Regardless, I do not see anything neurosurgical at this time. We will make a referral to pain management. We will upload her imaging to the [facility] PACS, and mail her back or disc. She will follow up with me on an as-needed basis. [email or web address] Not available 12/01/2019 13:05:26 12/19/2019 12/19/2019 he 1-year-old female presenting for evaluation of lumbar back pain. Patient reports a history of fall onto her left hip while walking in [place] [employer]. She reports following under rocks. She notes onset of coccydynia as well as bilateral hip discomfort. She reports right hip pain with radiation into the groin and left posterior buttock pain. Lumbar MRI was reviewed with her today which showed degenerative changes of the lumbar spine and disc protrusion at L4-5 with subsequent canal and foraminal narrowing. She does demonstrate positive Epifanio's test bilaterally on exam. While this certainly could represent SI joint dysfunction, I certainly feel as though it is far more likely related to her L4-5 disc pathology. We resumed reviewed conservative management options to help with pain complaints. Patient will likely benefit from referral to physical therapy. We also discussed and therapy to help with pain complaints. She would like to proceed with injection therapy first. We discussed lumbar epidural steroid injection to help improve pain complaints. Risks and benefits of the procedure were explained to the patient she wishes to proceed. We will plan to schedule the patient for L4-5 lumbar epidural steroid injection at the next available appointment. Patient will follow-up in one month for further evaluation. Not available 12/19/2019 15:30:51 Plan of Treatment Reminders Order Date Submit Date Provider Last Modified By Organization Details Last Modified Time Details Appointments None record ed. Lab None record ed. Referral None record ed. Procedures None record ed. Surgeries None record ed. Imaging None record ed. Medication Orders None record ed. Patient TargetsNo targets recorded. Patient Instructions Encounter Date Encounter Id Patient Instructions Last Modified By Organization Details Last Modified Time 12/19/2019 [id number] WRAP-UP Thank you for visiting [facility] at [facility]. At today's visit the following were addressed: - SCHEDULE L4L5 LESI Thank you for visiting the [facility]. -Because of the high volume of calls we receive and the high demand for our clinical services, please allow for 24 hours for us to respond to patient calls. We are generally unable to discuss patient care advice over the telephone. If you are experiencing a medication side effect or complication, you can call and let us know, but we will typically not make a medication substitution or change control coordinator the telephone. -Acute exacerbations of pain and flare ups are quite common in chronic pain states and need to be dealt with as part of the director of conservation management plan. Please make an appointment with us if you wish to discuss a matter in any detail. Should you still need to call, please do so at . For additional information and services provided by our clinic you may visit our Pain Management Clinic website at: [email or web address] Thank you for choosing [facility]. It was a pleasure to see you in clinic today. Please contact us with any questions or concerns at . Not available 12/19/2019 15:24:40 Reason for Referral None Reported. Results Created Date Observation Date Name Description Value Unit Range Abnormal Flag Note LastModifiedBy Organization Detail LastModifiedTime 12/24/19 20 12/27/2019 SARS CoV 2 RNA (COVI D-19) , QL, senior project coordinator-P CR, respi rator y speci men sars cov2 result NEGATI VE normal TEST REFER RED TO [facility]ORY . SEE SCANN ED REFER ENCE LAB REPOR T. PRINT ED REPOR T RECEI [place]LEY IN THE LABOR ATORY : Not Available [facility] [address] [place], [address], 12/27/2019 09:08:33 12/06/1911/16/2019 MRI, lumba r spine , w/o contr ast No observ ation record ed. BARCODE Not Available 2019 12:28:53 Result Notes None recorded. Procedures Surgical History Date Name Laterality Status Provider Name and Address Organization Details Recorded Time 12/28/19 Injection - Interlaminar Epidural Steroid completed PHI SANDOVAL MD [address] [place], [address], [facility] 12/28/2019 08:39:33 Imaging Results None recorded. Procedure Notes None recorded. Medical Equipment None Reported. Allergies No known drug allergies Medications Name Sig Start Date Stop Date Status Note LastModified by Organization Details LastModified Time ondansetron HCl 4 mg tablet TAKE 1 TABLET 3 TIMES EACH DAY NEEDED FOR NAUSEA AND VOMITING active Not Available Not Available No t Available atenolol 50 mg-chlorthal idone 25 mg tablet TAKE 1/2 TABLET 1 TIME EACH DAY active Not Available Not Available No t Available glimepiride 2 mg tablet TAKE 1 TABLET 1 TIME EACH DAY IN THE MORNING active Not Available Not Available No t Available ketorolac 10 mg tablet TAKE 1 TABLET 3 TIMES EACH DAY NEEDED FOR MODERATE OR SEVERE PAIN active Not Available Not Available Not Available famotidine 20 mg tablet TAKE 1 TABLET 2 TIMES EACH DAY active Not Available Not Available No t Available lisinopril 10 mg tablet TAKE 1 TABLET 1 TIME EACH DAY active Not Available Not Available No t Available promethazine 25 mg tablet TAKE 1 TABLET 3 TIMES EACH DAY NEEDED FOR NAUSEA AND VOMITING active Not Available Not Available No t Available pravastatin 20 mg tablet TAKE 1 TABLET 1 TIME EACH DAY AT BEDTIME active Not Available Not Available No t Available cefdinir 300 mg capsule active Not Available Not Available N ot Available BD Ultra-Fine Mini Pen Needle 31 gauge x 3/16 USE TO INJECT INSULIN 1 TIME EACH DAY active Not Available Not Available No t Available ProAir HFA 90 mcg/actuatio n aerosol inhaler active Not Available Not Available Not Available Lantus Solostar U-100 Insulin 100 unit/mL (3 mL) subcutaneous pen INJECT 15 UNITS UNDER THE SKIN 1 TIME EACH DAY AT BEDTIME active Not Available Not Available No t Available Chantix Starting Month Box 0.5 mg (11)-1 mg (42) tablets in dose pack Take as directed by mouth per dose pack instruction s active Not Available Not Available No t Available Janumet XR 50 mg-1,000 mg tablet,exten ded release TAKE 2 TABLETS 1 TIME EACH DAY WITH THE EVENING MEAL. SWALLOW WHOLE. DO NOT CRUSH, CHEW OR CUT. active Not Available Not Available No t Available Vitals Date Recorded Body weight Systolic And Diastolic Provider Name and Address Organization Details Last Updated DateTime 12/19/2019 18352.56 g 126/64 mm[Hg] [facility] 12/19/2019 15:01:29 Social History Question Answer Notes LastModified by Organizat ion Details LastModified Time Tobacco Smoking Status Current Every Day Smoker [facility] 12/19/2019 15:01:40 What Was The Date Of Your Most Recent Tobacco Screening? 12/19/2019 [email or web address] Information not available 12/19/2019 How Much Tobacco Do You Smoke? 1 PPD [email or web address] Information not available 12/19/2019 Sex: Unknown Functional Status None recorded. Mental Status None recorded. Family History Nothing Reported. Medical History No medical history recorded. Gynecological HistoryNo gynecological history recorded. Obstetrics History GPAL:G 0 P 0 0 0 0 Past Encounters Encounter ID Performer Location Encounter Start Date Encounter Closed Date Diagnosis/Indication Diagnosis SNOMED-CT Code Diagnosis ICD10 Code Diagnosis IMO Codes Diagnosis Note [id number] SIENNA CHO MD [facility] [address] [place] [address] 12/01/2019 11:46:15 12/01/2019 14:26:24 Pain in coccyx 98539308 M53.3 Lumbar radiculopathy 128 180983 M54.16 Time spent reviewing images, discussing the diagnosis and coordinati ng care: 15min [id number] PHI SANDOVAL MD [facility] [address] [place] [address] 12/19/2019 14:30:12 12/21/2019 09:01:10 Lumbar radiculopathy 539522106 M54.[id number] [facility] [facility] PROFESSIO NAL CHARGES [address], [address] [place] [address] 12/28/2019 08:14:28 12/30/2019 10:36:18 Lumbar radiculopathy 117842617 M54.16 Health Concerns Section Related Observation LastModified by Organization Detai ls LastModified Time None Recorded Concern Status LastModified by Organization Details LastModified Time None Recorded Advance Directives Directive None Recorded Payers Insurance Date Sequence Insurance Name Policy Number Policy [place] Covered Member ID [place] Member ID Guarantor Name 08/14/2020 1 [facility] (MEDICARE REPLACEMENT/A DVANTAGE - HMO) [id number] Jhoana Morales [id number] Jhoana Morales 08/14/2020 1 [place] Jhoana Morales [id number] Jhoana Morales Notes Date Note Type Note Provider Name and Address Organization Details Recorded Time 12/01/2019 text/html Mrs. Morales is a 49-year-old female who fell in January and has had low back pain, coccyx pain and some bilateral leg pain, right worse than left, since. She underwent an MRI of the lumbar spine that [facility] on November 16, 2019. We attempted to do a virtual visit today, but she was unable to make her camera work. We did a femoral call. She describes a to 9 out of 10 pain which is sharp, and aching, mostly present with sitting. The pain is constant. SIENNA CHO MD [facility] [place], [address], [facility] 12/01/2019 13:05:59 12/19/2019 text/html 49-year-old female presenting for evaluation of lumbar back pain. She reports a history of fall back in January 2019. She reports coccydynia and hip pain. She reports groin and right hip pain as well as left posterior hip discomfort. Lumbar MRI shows degenerative changes of the lumbar spine with disc protrusion at L4-5 with subsequent foraminal and canal narrowing. Chronic fracture of the coccyx is noted. She's been seen and evaluated by neurosurgery, Dr. Cho, and referred for injection therapy. She does report a history of current THC use and as such is not a candidate for medication management. PHI SANDOVAL MD [facility] [place], [address], [facility] 12/19/2019 15:31:03 OBGyn Episode No OBEpisode recorded.
--- OUTSIDE RECORDS SUMMARY | 2025-05-23 08:09 | XMS_ITS | Referral Summary ---
Author Organization [employer] ([place], [place], [place], [place]) Address [address] [place] [id number] Care Team Providers Care Photographic Process Screen Maker Name Role Phone Unavailable Primary Care Provider [...]
--- NOTE | 2025-05-23 08:30 | CT_ITS ---
FINAL REPORT CLINICAL HISTORY: lung cancer screening SMOKER 1 PPD X 30 YEARS COMPARISON: 12/16/2024 and 05/04/2024 FINDINGS: CT CHEST LOW DOSE SCREENING HISTORY: Screening exam for lung cancer. DOSE: CTDI vol: 2.90 mGy, DLP: 106.29 mGy*cm TECHNIQUE: Axial CT without IV contrast administration using low dose protocol. This study was performed with techniques to keep radiation doses as low as reasonably achievable, (ALARA). Individualized dose reduction techniques using automated exposure control or adjustment of mA and/or kV according to the patient's size were employed. There is a stable 5 mm nodule in the right lower lobe on image 48 of series 3. There is also stable elongated nodule in the right lower lobe on image 40 measuring 7 x 2 mm. No new pulmonary lesion is identified. There is dense mitral annular calcification. No pleural or pericardial effusion is seen. No adenopathy or mass lesion is present. IMPRESSION: Stable right lower lobe nodules without evidence of neoplasm. LUNG RADS CATEGORY 2 RECOMMENDATION: 12 month LDCT follow up Reviewed, Interpreted and Dictated by Narinder Ghosh MD Transcribed by Merle Anna Authenticated and . [facility]
== END 2025-05-23 23:59 | disposition home or self-care (01) ==
LOC: RAD 08:06
PROVIDERS: PCP Nurse Practitioner Family; Visit Provider Nurse Practitioner Family
DX: Z12.31 Encounter for screening mammogram for malignant neoplasm of breast (principal); R92.323 Mammographic fibroglandular density, bilateral breasts; Z12.2 Encounter for screening for malignant neoplasm of respiratory organs; F17.210 Nicotine dependence, cigarettes, uncomplicated; R91.8 Other nonspecific abnormal finding of lung field; I34.81 Nonrheumatic mitral (valve) annulus calcification
CPT/HCPCS: 71271; 77063; 77067